=== PATIENT | male | born 1965 | race Caucasian/White ===

== ENCOUNTER 2016-12-24 21:16 | Emergency (ER) | payer OTHER ==
[~2016-12-24] VITALS: Ht 180.3 cm; Wt 72.0 kg
[~2016-12-24 21:16] MED LIST: FURO20TA PO; GEMF600T PO; IBUP600T26 PO; SPIR25TA PO
[2016-12-24 21:24] VITALS: BP 111/85; PULSE 96; RESP 16; TEMP 98.2; O2SAT 96
--- NOTE | 2016-12-24 22:45 | RADRPT ---
EXAM DATE/TIME: 12/24/2016 22:21 [facility] COMPARISON: No previous studies available for comparison. INDICATIONS : Cough MEDICAL HISTORY : None. SURGICAL HISTORY : None. ENCOUNTER: Initial ACUITY: 1 day PAIN SCORE: 5/10 LOCATION: Bilateral chest FINDINGS: There is a poor inspiratory result. The heart is top normal in size. The pulmonary vascular pattern is normal. The lungs are clear. There is no pneumothorax. CONCLUSION: 1. Poor inspiratory result. 2. No acute focal pulmonary infiltrate or pulmonary vascular congestion. Micah Ardon MD on December 24, 2016 at 22:41 Board Certified Radiologist. This report was verified electronically.
--- NOTE | 2016-12-24 22:46 | RADRPT ---
EXAM DATE/TIME: 12/24/2016 22:23 [facility] COMPARISON: No previous studies available for comparison. INDICATIONS : Trauma/Fall MEDICAL HISTORY : None. SURGICAL HISTORY : None. ENCOUNTER: Initial ACUITY: 1 day PAIN SCORE: 5/10 LOCATION: Right knee FINDINGS: There is spurring at the insertion of the quadriceps tendon on the patella. Mild degenerative change s are noted involving the patellofemoral joint. There is no acute fracture, dislocation or knee join t effusion. CONCLUSION: 1. Spurring at the insertion of the quadriceps tendon on the patella. 2. Mild degenerative changes involving the patellofemoral joint. 3. No acute fracture, dislocation or knee joint effusion. Micah Ardon MD on December 24, 2016 at 22:42 Board Certified Radiologist. This report was verified electronically.
[2016-12-24 22:49] VITALS: BP 143/87; PULSE 99; RESP 22; O2SAT 93
[2016-12-24] MEDS ORDERED: cefTRIAXone INJ 1,000 MG in SODIUM CHLORIDE 0.9% INJ 100 ML IV ONE (23:00)
[2016-12-24] MEDS ORDERED: SODIUM CHLORIDE 0.9% FLUSH 10 ML FLUSH IVF PRN (23:00)
[2016-12-24] MEDS ORDERED: RESP: ALBUTEROL 2.5 MG/3 ML NEB (SCH) INH ONE (23:00)
[2016-12-24] MEDS ORDERED: AZITHROMYCIN INJ 500 MG in SODIUM CHLOR 0.9% 250 ML INJ 250 ML IV ONE (23:00)
[2016-12-24] MEDS ORDERED: SODIUM CHLOR 0.9% 1000 ML INJ 1,000 ML IV ONE (23:00)
[2016-12-24] MEDS ORDERED: guaiFENesin SOLUTION 200 MG/10 ML CUP PO ONE (23:15)
[2016-12-24 23:30] VITALS: BP 142/76; PULSE 100; RESP 18; O2SAT 94
[2016-12-24 23:38] LABS: AUTOMATED NEUTROPHIL # 7.6 TH/MM3 (1.8-7.7); BASOPHIL # 0.1 TH/MM3 (0-0.2); BASOPHIL % 1.1 % (0.0-2.0); EOSINOPHIL # 0.2 TH/MM3 (0-0.4); EOSINOPHIL % 2.2 % (0.0-4.0); HEMATOCRIT 45.4 % (39.0-51.0); HEMO FLAGS DIFF FINAL; LYMPH % 21.7 % (9.0-44.0); LYMPHOCYTE # 2.4 TH/MM3 (1.0-4.8); MEAN CELL VOLUME 87.4 FL (80.0-100.0); MEAN CORPUSCULAR HEMOGLOBIN 29.1 PG (27.0-34.0); MEAN CORPUSCULAR HGB CONC 33.3 % (32.0-36.0); MONO % 6.7 % (0.0-8.0); NEUT % 68.3 % (16.0-70.0); PLATELET COUNT 260 TH/MM3 (150-450); RED BLOOD COUNT 5.19 MIL/MM3 (4.50-5.90); WHITE BLOOD COUNT 11.1 TH/MM3 (4.0-11.0)
[2016-12-24 23:53] LABS: BICARBONATE 26.1 MEQ/L (21.0-32.0); POTASSIUM 4.2 MEQ/L (3.5-5.1)
--- NOTE | 2016-12-25 00:27 | PD ---
HPI Chief Complaint: Fall Time Seen by Provider: 22:52 Travel History International Travel<30 days: No Contact w/Intl Traveler<30days: No Traveled to known affect area: No History of Present Illness HPI 51-year-old male arrives from [facility] after he fell from his wheelchair striking his right knee and right ribs. He's had pain since then. He denied loss of consciousness. No head trauma reported. He's had a cough for one week. No fever. He does have constant pain in the right knee and in the region of the right chest. The pain in the right chest pain is worse with palpation. Patient has somewhat of a difficult historian due to morning disability. History is obtained from EMS and facility documentation. [facility] Past Medical History High Cholesterol: Yes Diminished Hearing: No Musculoskeletal: Yes (myotonic muscular dystrophy) Immunizations Current: Yes Tetanus Vaccination: Unknown Influenza Vaccination: No Past Surgical History Eye Surgery: Yes Social History Alcohol Use: No Tobacco Use: Yes (09/28 ppd) Substance Use: No Allergies-Medications (Allergen,Severity, Reaction): Coded Allergies: No Known Allergies (Unverified , 12/24/16) Reported Meds & Prescriptions Reported Meds & Active Scripts Active Ibuprofen 600 Mg Tab 600 Mg PO Q8HR PRN Reported Furosemide 20 Mg Tab 20 Mg PO DAILY Spironolactone 25 Mg Tab 25 Mg PO DAILY Gemfibrozil 600 Mg Tab 600 Mg PO BID Review of Systems Except as stated in HPI: all other systems reviewed are Neg General / Constitutional: No: Fever Respiratory: Positive: Cough, Shortness of Breath Physical Exam Narrative GENERAL: 51-year-old male no acute distress SKIN: Focused skin assessment warm/dry. HEAD: Atraumatic. Normocephalic. EYES: Pupils equal and round. No scleral icterus. No injection or drainage. ENT: No nasal bleeding or discharge. Mucous membranes pink and moist. NECK: Trachea midline. No JVD. CARDIOVASCULAR: Regular rate and rhythm. No murmur appreciated. RESPIRATORY: Coarse breath sounds bilaterally. No significant tachypnea. GASTROINTESTINAL: Abdomen soft, non-tender, nondistended. Hepatic and splenic margins not palpable. MUSCULOSKELETAL: No obvious deformities. No clubbing. No cyanosis. No edema. NEUROLOGICAL: Awake and alert. No obvious cranial nerve deficits. Motor grossly within normal limits. Normal speech. PSYCHIATRIC: Appropriate mood and affect; insight and judgment normal. Data Data Last Documented VS Vital Signs Date Time Temp Pulse Resp B/P Pulse Ox O2 Delivery O2 Flow Rate FiO2 12/24/16 22:49 99 22 143/87 93 Room Air 12/24/16 21:24 98.2 Vital signs reviewed Orders Knee, Complete (4vws) (12/24/16 ) Chest, Single Ap (12/24/16 ) Basic Metabolic Panel (Bmp) (12/24/16 23:00) Complete Blood Count With Diff (12/24/16 23:00) Blood Culture (12/24/16 23:00) Ecg Monitoring (12/24/16 23:00) Iv Access Insert/Monitor (12/24/16 23:00) Oximetry (12/24/16 23:00) Sodium Chloride 0.9% Flush (Ns Flush) (12/24/16 23:00) Ceftriaxone Inj (Rocephin Inj) (12/24/16 23:00) Albuterol Neb (Albuterol Neb) (12/24/16 23:00) Azithromycin Inj (Zithromax Inj) (12/24/16 23:00) Sodium Chlor 0.9% 1000 Ml Inj (Ns 1000 M (12/24/16 23:00) Guaifenesin Liq (Robitussin Liq) (12/24/16 23:15) Labs Laboratory Tests Test 12/24/16 23:00 White Blood Count 11.1 TH/MM3 Red Blood Count 5.19 MIL/MM3 Hemoglobin 15.1 GM/DL Hematocrit 45.4 % Mean Corpuscular Volume 87.4 FL Mean Corpuscular Hemoglobin 29.1 PG Mean Corpuscular Hemoglobin 33.3 % Concent Red Cell Distribution Width 14.0 % Platelet Count 260 TH/MM3 Mean Platelet Volume 11.9 FL Neutrophils (%) (Auto) 68.3 % Lymphocytes (%) (Auto) 21.7 % Monocytes (%) (Auto) 6.7 % Eosinophils (%) (Auto) 2.2 % Basophils (%) (Auto) 1.1 % Neutrophils # (Auto) 7.6 TH/MM3 Lymphocytes # (Auto) 2.4 TH/MM3 Monocytes # (Auto) 0.7 TH/MM3 Eosinophils # (Auto) 0.2 TH/MM3 Basophils # (Auto) 0.1 TH/MM3 CBC Comment DIFF FINAL Differential Comment Sodium Level 142 MEQ/L Potassium Level 4.2 MEQ/L Chloride Level 104 MEQ/L Carbon Dioxide Level 26.1 MEQ/L Anion Gap 12 MEQ/L Blood Urea Nitrogen 27 MG/DL Creatinine 1.27 MG/DL Estimat Glomerular Filtration 60 ML/MIN Rate Random Glucose 117 MG/DL Calcium Level 9.4 MG/DL MDM Medical Decision Making Medical Screen Exam Complete: Yes Emergency Medical Condition: Yes Differential Diagnosis Rib fracture, pneumonia, fall, knee fracture, dehydration Narrative Course CBC & BMP Diagram 12/24/16 23:00 Last 24 hours Impressions Knee X-Ray 12/24/16 0000 Signed Impressions: Service Date/Time: November 22:23 - CONCLUSION: 1. Spurring at the insertion of the quadriceps tendon on the patella. 2. Mild degenerative changes involving the patellofemoral joint. 3. No acute fracture, dislocation or knee joint effusion. Micah Ardon MD Chest X-Ray 12/24/16 0000 Signed Impressions: Service Date/Time: November 22:21 - CONCLUSION: 1. Poor inspiratory result. 2. No acute focal pulmonary infiltrate or pulmonary vascular congestion. Micah Ardon MD Patient has been coughing quite a bit since his arrival. He had an excellent response to albuterol. Azithromycin prescribed. The patient received a liter of IV fluids. Diagnosis Primary Impression: Fall Qualified Code: W19.XXXA - Fall, initial encounter Additional Impressions: Rib pain on right side Cough Right knee injury Qualified Code: S89.91XA - Right knee injury, initial encounter Dehydration Referrals: Chris Cornelius MD 2 days Additional Instructions: You have a choice when it comes to health care, and we are glad that you chose [facility]. Hopefully, we have met your expectations on today's visit. You are welcome to return to [facility] at any time, as we are committed to meeting the health care needs of our community. Med/Other Pt SpecificInfo: Prescription(s) given Scripts Azithromycin 250 Mg [id number] Mg PO DAILY 4 Days Ref 0 Prov:Mark Jerome MD 12/25/16 Disposition: DISCHARGE HOME Condition: Stable Mark Jerome MD Dec 25, 2016 00:27
[2016-12-25 00:30] VITALS: BP 122/78; PULSE 102; RESP 18; O2SAT 99
[2016-12-25] MEDS ORDERED: AZIT250T3 PO (00:41)
[2016-12-25 01:29] VITALS: BP 113/86
== END 2016-12-25 08:30 | disposition home or self-care (01) ==
LOC: NEPE 21:16 → NEPA 12-25 08:30
DX: R07.81 Pleurodynia (principal); R05 Cough; E86.0 Dehydration; S89.91XA Unspecified injury of right lower leg, initial encounter; W05.0XXA Fall from non-moving wheelchair, initial encounter; Y92.89 Other specified places as the place of occurrence of the external cause
CPT/HCPCS: 71010; 73564; 80048; 85025; 87040; 94664; 96365; 96366; 96375; 99284; J0456; J0696; J7030; J7050; J7613

== ENCOUNTER 2017-01-02 14:49 | Emergency (ER) | payer MEDICARE, OTHER ==
[~2017-01-02] VITALS: Ht 165.1 cm; Wt 62.0 kg
[~2017-01-02 14:49] MED LIST changes: +AZIT250T3 PO
[2017-01-02 14:57] VITALS: BP 119/74; PULSE 72; RESP 18; TEMP 98.6
--- NOTE | 2017-01-02 15:04 | PD ---
HPI Chief Complaint: Fall Time Seen by Provider: 15:04 Travel History International Travel<30 days: No Contact w/Intl Traveler<30days: No Traveled to known affect area: No History of Present Illness HPI 51-year-old male with a history of myotonic muscular dystrophy and hyperlipidemia is brought to the emergency department by EMS from his assisted living facility for evaluation of left knee and right foot pain status post fall. The patient states that he was getting out of the shower with the assistance of his nurse when his knee buckled underneath him causing him to fall. States that he thinks he fell on his left knee and his right foot somehow because this is where he is having pain. He denies head trauma or loss of consciousness. Per EMS this was witnessed by the nurse who is also stating the patient did not hit his head or lose consciousness. The patient denies any neck pain, back pain, numbness or tingling, weakness. Pain is aggravated with palpation. Pain is mild in severity. Denies anticoagulation. No other complaints. PCP Dr. Cornelius. [facility] Past Medical History High Cholesterol: Yes Diminished Hearing: No Musculoskeletal: Yes (myotonic muscular dystrophy) Immunizations Current: Yes Past Surgical History Eye Surgery: Yes Social History Alcohol Use: No Tobacco Use: Yes (09/28 ppd) Substance Use: No Allergies-Medications (Allergen,Severity, Reaction): Coded Allergies: No Known Allergies (Unverified , 12/24/16) Reported Meds & Prescriptions Reported Meds & Active Scripts Active Reported Metformin (Metformin HCl) 1,000 Mg Tab 1,000 Mg PO BID With meals Spironolactone 25 Mg Tab 25 Mg PO DAILY Lasix (Furosemide) 20 Mg Tab 20 Mg PO DAILY Gemfibrozil 600 Mg Tab 600 Mg PO BID Take 30 minutes prior to breakfast and dinner. Review of Systems Except as stated in HPI: all other systems reviewed are Neg Physical Exam Narrative GENERAL: Thin pleasant male patient in no acute distress. SKIN: Warm and dry. HEAD: Normocephalic and atraumatic. EYES: No injection, drainage, or hyphema noted. PERRLA. EOMI. ENT: No nasal drainage noted. Oropharynx is clear. NECK: Supple and the trachea is midline. CARDIOVASCULAR: Regular rate and rhythm. RESPIRATORY: Breath sounds are equal bilaterally with no accessory muscle use, wheezing, rhonchi, or crackles. GASTROINTESTINAL: Abdomen is soft, non-tender, and nondistended. MUSCULOSKELETAL: Tenderness to palpation of right fourth and fifth toes and corresponding dorsal aspect of foot. DP pulses are 2+ bilaterally. Capillary refill is within normal limits. Left knee is not swollen or tender to palpation however patient has pain with full range of motion of the left knee. Negative AP drawer sign, the joint is stable. No obvious deformities, swelling , cyanosis, or ecchymosis is present throughout the upper and lower extremities. Patient has full range of motion without any signs of neurovascular compromise. NEUROLOGICAL: Awake, alert, and oriented. Normal speech and gait. Cranial nerves are grossly intact. Data Data Last Documented VS Vital Signs Date Time Temp Pulse Resp B/P Pulse Ox O2 Delivery O2 Flow Rate FiO2 01/02/17 14:59 96 01/02/17 14:57 98.6 72 18 119/74 Orders Foot, Complete ([id number]) (01/02/17 15:03) Knee, Complete (4vws) (01/02/17 15:03) MDM Medical Decision Making Medical Screen Exam Complete: Yes Emergency Medical Condition: Yes Differential Diagnosis Contusion versus sprain versus fracture Narrative Course 51-year-old male is brought to the emergency department for evaluation of mechanical fall with complaints of left knee and right foot pain. Patient is afebrile, vital signs are stable. No head trauma or loss of consciousness. Extremities are neurovascularly intact. X-ray imaging has been ordered and is pending. X-ray imaging of the left knee is negative for any acute abnormalities. X-ray of the right foot is negative for any acute abnormalities. The patient will be prescribed naproxen for pain relief. Discussed supportive care. He is stable for discharge back to his assisted living facility. Diagnosis Primary Impression: Left knee pain Qualified Code: M25.562 - Acute pain of left knee Additional Impressions: Right foot sprain Qualified Code: S93.601A - Right foot sprain, initial encounter Fall Qualified Code: W19.XXXA - Fall, initial encounter Referrals: Primary Care Physician Patient Instructions: Foot Sprain (ED), General Instructions, Knee Pain (ED) Additional Instructions: Take medications as prescribed with food and a full glass of water. Follow-up with your Primary Care Physician. Return to the ED for any acute worsening of symptoms. Med/Other Pt SpecificInfo: Prescription(s) given Scripts Naproxen 500 Mg [id number] Mg PO BID 5 Days Ref 0 Prov:Galindo Garcia MD 01/02/17 Disposition: 01 DISCHARGE HOME Condition: Stable Wilda Damon Jan 02, 2017 15:04
[2017-01-02] MEDS ORDERED: GEMF600T PO (16:14)
[2017-01-02] MEDS ORDERED: SPIR25TA PO (16:14)
[2017-01-02] MEDS ORDERED: FURO1TAB62 PO (16:14)
[2017-01-02] MEDS ORDERED: METF1000 PO (16:14)
--- NOTE | 2017-01-02 16:14 | RADRPT ---
EXAM DATE/TIME: 01/02/2017 15:43 [facility] COMPARISON: No previous studies available for comparison. INDICATIONS : Pain in right foot, fourth and fifth digits. Multiple falls. MEDICAL HISTORY : None. SURGICAL HISTORY : None. ENCOUNTER: Initial ACUITY: 1 day PAIN SCORE: 5/10 LOCATION: Right FINDINGS: Three view examination of the right foot demonstrates no soft tissue swelling, dislocation, or fractu re. The tarsal bones appear intact. The interphalangeal and metatarsophalangeal joints are intact. The calcaneus is intact. Bony mineralization is osteopenic. CONCLUSION: No acute fracture or joint dislocation. Arik Henson MD on January 02, 2017 at 16:12 Board Certified Radiologist. This report was verified electronically.
--- NOTE | 2017-01-02 16:15 | RADRPT ---
EXAM DATE/TIME: 01/02/2017 15:46 [facility] COMPARISON: No previous studies available for comparison. INDICATIONS : Pain in left knee, diffuse. Multiple falls. Trauma. MEDICAL HISTORY : None. SURGICAL HISTORY : None. ENCOUNTER: Initial ACUITY: 1 day PAIN SCORE: 5/10 LOCATION: Left FINDINGS: Four view examination of the left knee demonstrates no evidence of fracture or dislocation. Bony min eralization is normal. The articular surfaces are intact. The suprapatellar soft tissues have a nor mal configuration. CONCLUSION: Normal examination for a patient of this age. Arik Henson MD on January 02, 2017 at 16:13 Board Certified Radiologist. This report was verified electronically.
[2017-01-02] MEDS ORDERED: NAPR500T PO (16:48)
== END 2017-01-02 20:47 | disposition home or self-care (01) ==
LOC: NEPC 14:49
DX: S93.601A Unspecified sprain of right foot, initial encounter (principal); M25.562 Pain in left knee; G71.11 Myotonic muscular dystrophy; E78.00 Pure hypercholesterolemia, unspecified; F17.210 Nicotine dependence, cigarettes, uncomplicated; W18.30XA Fall on same level, unspecified, initial encounter; Y93.E1 Activity, personal bathing and showering; Y92.121 Bathroom in nursing home as the place of occurrence of the external cause; Y99.8 Other external cause status
CPT/HCPCS: 73564; 73630; 99284

== ENCOUNTER 2018-05-11 11:07 | Inpatient (IN) ==
[2018-05-11] MEDS ORDERED: Sod Chloride 0.9% Inj 1,000 ML IV.SIG ONE ×2 (11:14→12:53)
[2018-05-11] MEDS ORDERED: Morphine Inj 4 MG/ML Vial IV.PUSH ONE (11:14)
[2018-05-11 12:03] LABS: Baso % (Auto) 0.3 % (0.0-2.0); Eos % (Auto) 0.1 % (0.0-4.0); Hematocrit 40.5 % (39.0-51.0); Hemoglobin 13.4 gm/dL (13.0-17.0); Lymph # (Auto) 1.2 th/mm3 (1.0-4.8); Lymph % (Auto) 7.6 % (9.0-44.0); Mean Corpuscular Hemoglobin 27.6 pg (27.0-34.0); Mean Corpuscular Volume 83.5 fL (80.0-100.0); Mean Platelet Volume 10.2 fL (7.0-11.0); Mono # (Auto) 1.2 th/mm3 (0.0-0.9); Mono % (Auto) 7.9 % (0.0-8.0); Neut # (Auto) 13.1 th/mm3 (1.8-7.7); Neut % (Auto) 84.1 % (16.0-70.0); Platelet Count 218 th/mm3 (150-450); Red Blood Count 4.85 mil/mm3 (4.50-5.90); Red Cell Distribution Width 15.5 % (11.6-17.2); White Blood Count 15.6 th/mm3 (4.0-11.0)
--- NOTE | 2018-05-11 12:08 | ED ---
HPI General Chief Complaint: Abdominal Pain Stated Complaint: Abd Pain Time Seen by Provider: 05/11/18 11:09 Source: patient Mode of arrival: EMS Limitations: no limitations and physical limitation History of Present Illness HPI narrative: 52-year-old male with PMH of DM, MS, nonambulatory, presents to the ED by EMS from his [facility] for evaluation of left lower quadrant abdominal pain. Patient rates the pain 8/10, worsened by certain movements. No alleviating factors reported. He states that he had a fall 2 days ago and was evaluated here. He states that he has not had a bowel movement since that time. He denies fevers, chills, nausea, vomiting, anorexia, dysuria, back pain. He is not oxygen dependent at the [facility]. He is not insulin-dependent, takes metformin daily. Per EMS BGL 441. Patient is a poor historian. Related Data Home Medications Medication Instructions Recorded Confirmed atorvastatin [Lipitor] 10 mg PO QPM 05/09/18 05/11/18 metformin 500 mg PO DAILY 05/09/18 05/11/18 Allergies Allergy/AdvReac Type Severity Reaction Status Date / Time No Known Allergies Allergy Verified 05/11/18 11:23 Review of Systems ROS: all other systems reviewed are negative PMFSH Medical History Medical History High cholesterol (Acute) Diabetes (Acute) Multiple sclerosis (Acute) Social History Social History Substance History: No History of Abuse Smoking Status: Current every day smoker Tobacco Type: Cigarettes How Often Do You Have a Drink Containing Alcohol: Never Recent Travel in [facility] within the Last 8 Weeks: No Recent Out of Country Travel within the Last 8 Weeks: No Immunization History Tetanus Immunization: <5 Years Exam Narrative Exam Narrative: GENERAL: Well-nourished white male in no acute distress. SKIN: Focused skin assessment warm/dry. HEAD: Atraumatic. Normocephalic. EYES: Pupils equal and round. No scleral icterus. No injection or drainage. ENT: No nasal bleeding or discharge. Mucous membranes pink and moist. NECK: Trachea midline. No JVD. CARDIOVASCULAR: Regular rate and rhythm. No murmur appreciated. RESPIRATORY: No accessory muscle use. Clear to auscultation. Breath sounds equal bilaterally. GASTROINTESTINAL: Abdomen soft, distended, tender in the left lower quadrant, hypoactive bowel sounds. Hepatic and splenic margins not palpable. RECTAL EXAM: No masses or tenderness, stool is yellow-brown. Guaiac negative MUSCULOSKELETAL: No obvious deformities. +clubbing. No cyanosis. No edema. NEUROLOGICAL: Awake and alert. No obvious cranial nerve deficits. Motor grossly within normal limits. Chronically slurred speech. PSYCHIATRIC: Appropriate mood and affect. Procedures Hemaprompt Stool Procedural Steps Taken: specimen placed in appropriate test area and controls appropriately positive and negative Hemaprompt Stool Result: negative Course Initial Documented Vital Signs Temperature 98.9 F 05/11/18 11:12 Pulse Rate 122 H 05/11/18 11:12 Respiratory Rate 27 H 05/11/18 11:12 Blood Pressure 166/96 H 05/11/18 11:12 Pulse Oximetry 87 L 05/11/18 11:12 Last Documented Vital Signs Temperature 98.9 F 05/11/18 11:12 Pulse Rate 78 05/11/18 15:32 Respiratory Rate 12 05/11/18 15:32 Blood Pressure 131/67 05/11/18 15:32 Pulse Oximetry 96 05/11/18 14:30 Medical Decision Making MILLIE Attestation MILLIE supervised visit: Yes Attestation: I, Dr. Alvarez, have reviewed the advance practice practitioner's documentation and am in agreement, met with the patient face to face, made the diagnosis, and the medical decision making was done by me. *My assessment and Findings: This patient is critically ill. Extensive scanning was done which revealed enlarged retroperitoneal hematoma. He also has respiratory acidosis. I placed him on BiPAP for an hour and redraw ABG which really does not look much different. I discussed with trauma surgeon Dr. Julio who will evaluate the patient. We are going to admit him to intensive care. Aggregate critical care time was 80 minutes. Time to perform other separately billable procedures was not included in the critical care time. My time did not include minutes spent treating any other patients simultaneously or on activities that did not directly contribute to the patient's treatment. The services I provided to this patient were to treat and/or prevent clinically significant deterioration that could result in: Cardiopulmonary arrest, hemorrhagic shock, I provided critical care services requiring my management, as noted below: Chart data review, documentation time, medication orders and management, vital sign assessments/reviewing monitor data, ordering and reviewing lab tests, ordering and interpreting/reviewing x-rays and diagnostic studies, care of the patient and discussion of the patient with the admitting physicians. MDM Narrative Medical decision making narrative: 52-year-old male with PMH of DM, MS presents to the ED for evaluation of 2 day history of constipation. He had a fall 2 days ago and was evaluated here and discharged. BP 166/96, pulse 122, respiratory rate 27%, O2 sats 95% on 2 L nasal nasal cannula, afebrile, BGL 441 on presentation. On physical exam the abdomen is distended and tender in the left lower quadrant. Rectal exam guaiac negative and without evidence of impaction. Patient was placed on 2 L by nasal cannula. He was administered 1 L normal saline. EKG rate 116, sinus tachycardia with first-degree AV block. NC interval 215, QRS 99, QTc 375 ms. LAD, no acute ST changes. Reviewed by Dr. Alvarez. CBC: WBC 15.6, 84.1% Neutrophils CMP: BGL 342 LACTIC: 3.0, recheck 1.6 Beta hydroxybutyrate: 0.07 ABG: pH 7.282 respiratory acidosis CXR: Diminished volumes, focal parenchymal opacity in the left lower base. CT abdomen/pelvis: Left-sided retroperitoneal hematoma 10.3 x 6.9 cm. There is a 1 cm cyst soft tissue mass in the posterior mid right kidney and a 1.9 soft tissue density mass adjacent to the right renal pole. CT brain: no acute findings. Patient was placed on BiPap, administered a 2nd liter of NS, 6u insulins IM. Vitals improved on recheck. Recheck BGL 167. Recheck ABG largely unchanged, pH 7.27. Dr. Alvarez discussed the CT findings with Dr. Galarza who agrees to accept the patient to his service in the ICU. Medical Screen Exam Complete: Yes Emergency Medical Condition: Yes Differential Diagnosis Differential Diagnosis: Paralytic ileus versus impaction versus hyperglycemia versus splenic laceration versus HHNK versus DKA versus metabolic derangement versus other Lab Data Result diagrams: 05/11/18 11:31 05/11/18 11:31 Lab Results 05/11/18 05/11/18 05/11/18 Range/Units 11:31 11:31 11:31 WBC 15.6 H (4.0-11.0) th/mm3 RBC 4.85 (4.50-5.90) mil/mm3 Hgb 13.4 (13.0-17.0) gm/dL Hct 40.5 (39.0-51.0) % MCV 83.5 (80.0-100.0) fL MCH 27.6 (27.0-34.0) pg MCHC 33.0 (32.0-36.0) % RDW 15.5 (11.6-17.2) % Plt Count 218 (150-450) th/mm3 MPV 10.2 (7.0-11.0) fL Neut % (Auto) 84.1 H (16.0-70.0) % Lymph % (Auto) 7.6 L (9.0-44.0) % Treasure % (Auto) 7.9 (0.0-8.0) % Eos % (Auto) 0.1 (0.0-4.0) % Baso % (Auto) 0.3 (0.0-2.0) % Neut # (Auto) 13.1 H (1.8-7.7) th/mm3 Lymph # (Auto) 1.2 (1.0-4.8) th/mm3 Treasure # (Auto) 1.2 H (0.0-0.9) th/mm3 Eos # (Auto) 0.0 (0.0-0.4) th/mm3 Baso # (Auto) 0.0 (0.0-0.2) th/mm3 WBC Differential . Differential Comment Auto diff final PT (9.8-11.6) sec INR Ratio APTT (24.3-30.1) sec Puncture Site Patient Temperature O2 Saturation (90-100) % ABG pH (7.380-7.420) ABG pCO2 (38-42) mmHg ABG pO2 (61-120) mmHg ABG HCO3 (22-26) mmol/L ABG O2 Content (12.0-20.0) Vol % ABG Base Excess (-2-2) mmol/L ABG Methemoglobin (0-2) % Melquiades Test Hemoglobin (12.0-16.0) G/DL Carboxyhemoglobin (0-4) % O2 Delivery Device Liter Flow L/M Vent Setting Inspired O2 % Critical Value Sodium (136-145) meq/L Potassium (3.5-5.1) meq/L Chloride (98-107) meq/L Carbon Dioxide (21.0-32.0) meq/L Anion Gap (5-15) meq/L BUN (7-18) mg/dL Creatinine (0.60-1.30) mg/dL Estimated GFR (>89) mL/min POC Glucose (68-110) mg/dl Random Glucose (74-106) mg/dL Lactic Acid 3.0 H (0.4-2.0) mmol/L Calcium (8.5-10.1) mg/dL Total Bilirubin (0.2-1.0) mg/dL AST (15-37) U/L ALT (12-78) U/L Alkaline Phosphatase (45-117) U/L Troponin I (0.02-0.05) ng/mL Total Protein (6.4-8.2) g/dL Albumin (3.4-5.0) g/dL Lipase (73-393) U/L Beta-Hydroxybutyric Acd 0.07 (0.00-0.39) mmol/L Blood Type Blood Type Recheck Antibody Screen 05/11/18 05/11/18 05/11/18 Range/Units 11:31 11:31 12:59 WBC (4.0-11.0) th/mm3 RBC (4.50-5.90) mil/mm3 Hgb (13.0-17.0) gm/dL Hct (39.0-51.0) % MCV (80.0-100.0) fL MCH (27.0-34.0) pg MCHC (32.0-36.0) % RDW (11.6-17.2) % Plt Count (150-450) th/mm3 MPV (7.0-11.0) fL Neut % (Auto) (16.0-70.0) % Lymph % (Auto) (9.0-44.0) % Treasure % (Auto) (0.0-8.0) % Eos % (Auto) (0.0-4.0) % Baso % (Auto) (0.0-2.0) % Neut # (Auto) (1.8-7.7) th/mm3 Lymph # (Auto) (1.0-4.8) th/mm3 Treasure # (Auto) (0.0-0.9) th/mm3 Eos # (Auto) (0.0-0.4) th/mm3 Baso # (Auto) (0.0-0.2) th/mm3 WBC Differential Differential Comment PT (9.8-11.6) sec INR Ratio APTT (24.3-30.1) sec Puncture Site Right radial Patient Temperature 98.6 O2 Saturation 86 L* (90-100) % ABG pH 7.28 L* (7.380-7.420) ABG pCO2 63 H* (38-42) mmHg ABG pO2 63 (61-120) mmHg ABG HCO3 29 H (22-26) mmol/L ABG O2 Content 14.2 (12.0-20.0) Vol % ABG Base Excess 2.8 H (-2-2) mmol/L ABG Methemoglobin 0.7 (0-2) % Melquiades Test Present Hemoglobin 11.8 L (12.0-16.0) G/DL Carboxyhemoglobin 2.4 (0-4) % O2 Delivery Device Nasal cannula Liter Flow 2.00 L/M Vent Setting Inspired O2 21 % Critical Value Yes Sodium 139 (136-145) meq/L Potassium 4.0 (3.5-5.1) meq/L Chloride 101 (98-107) meq/L Carbon Dioxide 27.8 (21.0-32.0) meq/L Anion Gap 10 (5-15) meq/L BUN 17 (7-18) mg/dL Creatinine 1.12 (0.60-1.30) mg/dL Estimated GFR 69 L (>89) mL/min POC Glucose (68-110) mg/dl Random Glucose 342 H (74-106) mg/dL Lactic Acid (0.4-2.0) mmol/L Calcium 8.6 (8.5-10.1) mg/dL Total Bilirubin 2.0 H (0.2-1.0) mg/dL AST 10 L (15-37) U/L ALT 36 (12-78) U/L Alkaline Phosphatase 80 (45-117) U/L Troponin I Less than 0.02 L (0.02-0.05) ng/mL Total Protein 7.1 (6.4-8.2) g/dL Albumin 3.0 L (3.4-5.0) g/dL Lipase 52 L (73-393) U/L Beta-Hydroxybutyric Acd (0.00-0.39) mmol/L Blood Type Blood Type Recheck Antibody Screen 05/11/18 05/11/18 05/11/18 Range/Units 13:10 13:53 13:53 WBC (4.0-11.0) th/mm3 RBC (4.50-5.90) mil/mm3 Hgb (13.0-17.0) gm/dL Hct (39.0-51.0) % MCV (80.0-100.0) fL MCH (27.0-34.0) pg MCHC (32.0-36.0) % RDW (11.6-17.2) % Plt Count (150-450) th/mm3 MPV (7.0-11.0) fL Neut % (Auto) (16.0-70.0) % Lymph % (Auto) (9.0-44.0) % Treasure % (Auto) (0.0-8.0) % Eos % (Auto) (0.0-4.0) % Baso % (Auto) (0.0-2.0) % Neut # (Auto) (1.8-7.7) th/mm3 Lymph # (Auto) (1.0-4.8) th/mm3 Treasure # (Auto) (0.0-0.9) th/mm3 Eos # (Auto) (0.0-0.4) th/mm3 Baso # (Auto) (0.0-0.2) th/mm3 WBC Differential Differential Comment PT 11.0 (9.8-11.6) sec INR 1.1 Ratio APTT 28.4 (24.3-30.1) sec Puncture Site Patient Temperature O2 Saturation (90-100) % ABG pH (7.380-7.420) ABG pCO2 (38-42) mmHg ABG pO2 (61-120) mmHg ABG HCO3 (22-26) mmol/L ABG O2 Content (12.0-20.0) Vol % ABG Base Excess (-2-2) mmol/L ABG Methemoglobin (0-2) % Melquiades Test Hemoglobin (12.0-16.0) G/DL Carboxyhemoglobin (0-4) % O2 Delivery Device Liter Flow L/M Vent Setting Inspired O2 % Critical Value Sodium (136-145) meq/L Potassium (3.5-5.1) meq/L Chloride (98-107) meq/L Carbon Dioxide (21.0-32.0) meq/L Anion Gap (5-15) meq/L BUN (7-18) mg/dL Creatinine (0.60-1.30) mg/dL Estimated GFR (>89) mL/min POC Glucose (68-110) mg/dl Random Glucose (74-106) mg/dL Lactic Acid 1.6 (0.4-2.0) mmol/L Calcium (8.5-10.1) mg/dL Total Bilirubin (0.2-1.0) mg/dL AST (15-37) U/L ALT (12-78) U/L Alkaline Phosphatase (45-117) U/L Troponin I (0.02-0.05) ng/mL Total Protein (6.4-8.2) g/dL Albumin (3.4-5.0) g/dL Lipase (73-393) U/L Beta-Hydroxybutyric Acd (0.00-0.39) mmol/L Blood Type O Positive Blood Type Recheck Required Antibody Screen Negative 05/11/18 05/11/18 Range/Units 15:20 15:29 WBC (4.0-11.0) th/mm3 RBC (4.50-5.90) mil/mm3 Hgb (13.0-17.0) gm/dL Hct (39.0-51.0) % MCV (80.0-100.0) fL MCH (27.0-34.0) pg MCHC (32.0-36.0) % RDW (11.6-17.2) % Plt Count (150-450) th/mm3 MPV (7.0-11.0) fL Neut % (Auto) (16.0-70.0) % Lymph % (Auto) (9.0-44.0) % Treasure % (Auto) (0.0-8.0) % Eos % (Auto) (0.0-4.0) % Baso % (Auto) (0.0-2.0) % Neut # (Auto) (1.8-7.7) th/mm3 Lymph # (Auto) (1.0-4.8) th/mm3 Treasure # (Auto) (0.0-0.9) th/mm3 Eos # (Auto) (0.0-0.4) th/mm3 Baso # (Auto) (0.0-0.2) th/mm3 WBC Differential Differential Comment PT (9.8-11.6) sec INR Ratio APTT (24.3-30.1) sec Puncture Site Right radial Patient Temperature 98.6 O2 Saturation 90 (90-100) % ABG pH 7.28 L* (7.380-7.420) ABG pCO2 62 H* (38-42) mmHg ABG pO2 72 (61-120) mmHg ABG HCO3 28 H (22-26) mmol/L ABG O2 Content 14.8 (12.0-20.0) Vol % ABG Base Excess 1.6 (-2-2) mmol/L ABG Methemoglobin 0.6 (0-2) % Melquiades Test Present Hemoglobin 11.7 L (12.0-16.0) G/DL Carboxyhemoglobin 2.1 (0-4) % O2 Delivery Device Bipap Liter Flow L/M Vent Setting Ipap 12/epap 5 Inspired O2 40 % Critical Value Yes Sodium (136-145) meq/L Potassium (3.5-5.1) meq/L Chloride (98-107) meq/L Carbon Dioxide (21.0-32.0) meq/L Anion Gap (5-15) meq/L BUN (7-18) mg/dL Creatinine (0.60-1.30) mg/dL Estimated GFR (>89) mL/min POC Glucose 167 H (68-110) mg/dl Random Glucose (74-106) mg/dL Lactic Acid (0.4-2.0) mmol/L Calcium (8.5-10.1) mg/dL Total Bilirubin (0.2-1.0) mg/dL AST (15-37) U/L ALT (12-78) U/L Alkaline Phosphatase (45-117) U/L Troponin I (0.02-0.05) ng/mL Total Protein (6.4-8.2) g/dL Albumin (3.4-5.0) g/dL Lipase (73-393) U/L Beta-Hydroxybutyric Acd (0.00-0.39) mmol/L Blood Type Blood Type Recheck Antibody Screen Imaging Data Radiologist's impression: Abdomen/Pelvis CT 05/11/18 11:14 CONCLUSION: 1. Enlarging exophytic lesion arising from the inferior pole of the left kidney likely due to interval lesional hemorrhage with adjacent large retroperitoneal hematoma measuring 10.3 x 6.9 cm. Recommend further characterization of this lesion once patient's hemorrhage resolves with MRI renal mass protocol to exclude underlying mass that bled following trauma. 2. 1.0 cm soft tissue density mass arising from the posterior mid right kidney. There are also additional indeterminate density lesions primarily in the right kidney. These lesions can also be further characterized with MRI renal mass protocol exam. 3. 1.9 cm soft tissue density mass adjacent to the right renal midpole. This appears to be separate from the right kidney. Etiology is uncertain. Differential considerations include splenosis. If this cannot be definitively characterized at the time of MRI renal mass examination, consider sulfur colloid or heat damaged red cell nuclear medicine scan to exclude splenic tissue. 4. Additional ancillary findings, as above. Chest X-Ray 05/11/18 11:59 CONCLUSION: Diminished lung volumes. Focal parenchymal opacity at the left lung base. Head CT 05/11/18 13:53 CONCLUSION: No acute intracranial injury. . Discharge Plan Discharge Disposition Patient Disposition: 30 Still Patient Discharge Details Diagnosis: Traumatic retroperitoneal hematoma, Respiratory acidosis Physicians Team ED Provider: Danny Alvarez ED Midlevel Provider: Arabella Lucas Primary Care Provider: UNKNOWN, Attending Provider: Aaron Tucker Status ED Status: Admitted Patient
[2018-05-11 12:31] LABS: Alanine Aminotransferase 36 U/L (12-78); Alkaline Phosphatase 80 U/L (45-117); Anion Gap 10 meq/L (5-15); Aspartate Aminotransferase 10 U/L (15-37); Blood Urea Nitrogen 17 mg/dL (7-18); Calcium 8.6 mg/dL (8.5-10.1); Carbon Dioxide 27.8 meq/L (21.0-32.0); Chloride 101 meq/L (98-107); Glomerular Filtration Rate 69 mL/min (>89); Glucose,Random 342 mg/dL (74-106); Lipase 52 U/L (73-393); Sodium 139 meq/L (136-145); Total Protein 7.1 g/dL (6.4-8.2)
[2018-05-11 13:32] LABS: ABG Base Excess 2.8 mmol/L (-2-2); ABG PCO2 63 mmHg (38-42); ABG PO2 63 mmHg (61-120)
--- NOTE | 2018-05-11 13:41 | CT ---
EXAM DATE: 05/11/2018 1:17 PM EDT AGE/SEX: 52 years / Male INDICATIONS: fall now having upper abdomen pain with constipatin CLINICAL DATA: This is the patient's initial encounter. Patient reports that signs and symptoms have been present for 3 days and indicates a pain score of 10/10. MEDICAL/SURGICAL HISTORY: Multiple sclerosis. Diabetes. None. ORAL CONTRAST: No oral contrast ingested. RADIATION DOSE: 7.15 CTDI (mGy) COMPARISON: [facility] – [place] ABDOMEN & PELVIS W CONTRAST, 05/09/2018. . TECHNIQUE: Multiple contiguous axial images were obtained through the abdomen and pelvis following b olus infusion of 71 ml Omnipaque 350 (iohexol) nonionic water-soluble contrast as a single exam dos e. No oral contrast ingested. Using automated exposure control and adjustment of the mA and/or kV ac cording to patient size, radiation dose was kept as low as reasonably achievable to obtain optimal di agnostic quality images. DICOM format image data is available electronically for review and comparis on. FINDINGS: LOWER LUNGS: Patchy airspace consolidation at the lung bases bilaterally. LIVER: Liver demonstrates diffusely decreased density without focal mass or intrahepatic ductal dila tation. Numerous gallstones are noted in the gallbladder. SPLEEN: Homogeneous density without enlargement. PANCREAS: Unremarkable without mass or calcification. KIDNEYS: There is a 4.3 x 2.8 cm isodense exophytic lesion arising from the inferior pole the left k idney which appears more dense and larger in comparison to recent prior exam. Hemorrhage extends from this region inferiorly and laterally with a large adjacent retroperitoneal hematoma measuring 10.3 x 6.9 cm with mass effect on the left kidney. Redemonstration of multiple bilateral renal cysts. This includes an indeterminate cystic lesion measuring 3 cm in the superior pole of the right kidney. Ther e is also a potentially soft tissue density 1 cm mass arising from the posterior mid right kidney. Th ere is also a soft tissue density 1.9 cm mass adjacent to the right renal midpole that appears separa te from the kidney. Multiple other hypodense cystic lesions are too small to fully characterize. ADRENAL GLANDS: Unremarkable. AORTA: Roopa-aneurysmal. BOWEL/MESENTERY: The bowel loops are grossly unremarkable. The cecum and sigmoid colon have a vesna l configuration. ABDOMINAL WALL: Intact. RETROPERITONEUM: No evidence of adenopathy in the retrocrural, para-aortic, or deep pelvic regions. BLADDER: Contours are smooth. REPRODUCTIVE: No abnormal masses or calcifications seen. BONY STRUCTURES: Unremarkable. CONCLUSION: 1. Enlarging exophytic lesion arising from the inferior pole of the left kidney likely due to interv al lesional hemorrhage with adjacent large retroperitoneal hematoma measuring 10.3 x 6.9 cm. Recommen d further characterization of this lesion once patient's hemorrhage resolves with MRI renal mass prot ocol to exclude underlying mass that bled following trauma. 2. 1.0 cm soft tissue density mass arising from the posterior mid right kidney. There are also addit ional indeterminate density lesions primarily in the right kidney. These lesions can also be further characterized with MRI renal mass protocol exam. 3. 1.9 cm soft tissue density mass adjacent to the right renal midpole. This appears to be separate from the right kidney. Etiology is uncertain. Differential considerations include splenosis. If this cannot be definitively characterized at the time of MRI renal mass examination, consider sulfur collo id or heat damaged red cell nuclear medicine scan to exclude splenic tissue. 4. Additional ancillary findings, as above. Electronically signed by: Gene Fontenot MD 05/11/2018 1:40 PM EDT
--- NOTE | 2018-05-11 13:44 | XR ---
EXAM DATE: 05/11/2018 1:25 PM EDT AGE/SEX: 52 years / Male INDICATIONS: Congestion. CLINICAL DATA: This is the patient's initial encounter. Patient reports that signs and symptoms have been present for 1 day and indicates a pain score of Nonresponsive. MEDICAL/SURGICAL HISTORY: Non-responsive. Non-responsive. COMPARISON: [facility] [place] SING[place] AP, 12/24/2016. . FINDINGS: There is mild focal parenchymal opacity at the left lung base. Lung volumes are symmetrically diminis hed. Visualized cardiac contours are grossly satisfactory. CONCLUSION: Diminished lung volumes. Focal parenchymal opacity at the left lung base. Electronically signed by: Bryson Paez MD 05/11/2018 1:43 PM EDT
[2018-05-11 14:24] LABS: Activated Partial Thrombo Time 28.4 sec (24.3-30.1); INR 1.1 Ratio
--- NOTE | 2018-05-11 15:00 | CT ---
EXAM DATE: 05/11/2018 2:55 PM EDT AGE/SEX: 52 years / Male INDICATIONS: Fall from seated position. CLINICAL DATA: This is the patient's initial encounter. Patient reports that signs and symptoms have been present for 1 day and indicates a pain score of 4/10. MEDICAL/SURGICAL HISTORY: Multiple sclerosis. Diabetes. None. RADIATION DOSE: 56.35 CTDI (mGy) COMPARISON: No prior exams available for comparison. TECHNIQUE: CT of the head without contrast. Using automated exposure control and adjustment of the mA and/or kV according to patient size, radiation dose was kept as low as reasonably achievable to ob tain optimal diagnostic quality images. DICOM format image data is available electronically for revi ew and comparison. FINDINGS: There is residual vascular contrast from earlier CT abdomen. There is no evidence of intracranial hem orrhage or mass. There is nothing to suggest acute infarction. The ventricles are mildly asymmetric o n a developmental basis. No abnormal extra-axial fluid accumulation is identified. Patchy mild dimini shed white matter attenuation. Nothing to suggest acute brain injury. Fluid in the mastoid air cells, left worse than right. Facial sinuses are unremarkable CONCLUSION: No acute intracranial injury. . Electronically signed by: Bryson Paez MD 05/11/2018 2:59 PM EDT
[2018-05-11 15:23] LABS: ABG Base Excess 1.6 mmol/L (-2-2); ABG PCO2 62 mmHg (38-42); ABG PO2 72 mmHg (61-120)
--- NOTE | 2018-05-11 15:54 | ECG ---
Date Performed: 05/11/2018 Time Performed: 12:24:53 PTAGE: 52 years EKG: SINUS TACHYCARDIA WITH FIRST DEGREE AV BLOCK MARKED LEFT AXIS DEVIATION PATTERN CONSISTENT WITH PULMONARY DISEASE MINIMAL VOLTAGE CRITERIA FOR LVH, CONSIDER NORMAL VARIANT NONSPECIFIC T-WAVE A BNORMALITY ABNORMAL ECG NO PREVIOUS TRACING DOCTOR: Sriram Christine Interpretating Date/Time 05/11/2018 15:53:26
[2018-05-11] MEDS ORDERED: Naloxone Inj 0.4 MG/ML Vial IV.PUSH PRN (16:29)
[2018-05-11] MEDS ORDERED: Post-op Orders (for Pharmacy) OTHER ONE (16:29)
[2018-05-11] MEDS ORDERED: Bisacodyl 10 MG Supp RECTAL PRN (16:29)
--- NOTE | 2018-05-11 16:58 | P.CONCC ---
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 Patient was found to have a large left retroperitoneal mesenteric hematoma measuring about 10 x 6 cm, also had right renal tumor which apparently had been followed per Dr. Arnold's notes. Patient's initial ABG showed pH of 7.28 PCO2 of 63 on room air and he was placed on a BiPAP. Repeat ABG after several hours on BiPAP setting 12/5 showed pH 7.28 PCO2 unchanged at 62. Critical care medicine was consulted for hypercapnic respiratory failure on BiPAP. I evaluated the patient in the ICU. He is somnolent but wakes up to command. Currently he is on 18/6 pressure setting on BiPAP. Currently patient is tachycardic and lethargic. He has history of myotonic muscular dystrophy with atrophied extremities. He is also a smoker. Repeat ABG on above settings shows no significant improvement. His pH remains at 7.28. Patient is at high risk of decompensation due to known muscular dystrophy. Proceed with endotracheal intubation Review of Systems unobtainable due to mental condition PMFSH - History History Provided By: Patient - Medical History Medical History: Medical History (Last Updated 05/11/18 @ 11:29 by Letty Higgins RN) High cholesterol Diabetes Multiple sclerosis - Tobacco History Tobacco Use In Past 30 Days: Yes Smoking Status: Current every day smoker Tobacco Type: Cigarettes - Alcohol History How Often Do You Have a Drink Containing Alcohol: Never - Substance Use History Substance History: No History of Abuse - Travel History Recent Travel in the [place] Within the Last 8 Weeks: No Recent Travel Out of the Country Within the Last 8 Weeks: No - Immunization History Tetanus Immunization: <5 Years Medications and Allergies Active Medications: Active Medications Al Hydroxide/Mg Hydroxide (Milk Of Magnesia Liq) 30 ml PO Q12H PRN PRN Reason: Mild Constipation Bisacodyl (Dulcolax Supp) 10 mg RECTAL DAILY PRN PRN Reason: SEVERE CONSITIPATION Lactated Ringer's (Lr 1000 Ml Inj) 1,000 mls @ 100 mls/hr IV.CONT .Q10H GEORGI Lactulose (Lactulose Liq) 30 ml PO DAILY GEORGI Naloxone HCl (Narcan Inj) 0.4 mg IV.PUSH UNSCH PRN PRN Reason: SEE LABEL COMMENTS Ondansetron HCl (Zofran Inj) 4 mg IV.PUSH Q6H PRN PRN Reason: NAUSEA OR VOMITING Pantoprazole Sodium (Protonix) 40 mg PO DAILY GEORGI Senna/Docusate Sodium (Deb-Colace) 1 tab PO BID GEORGI Sennosides (Senokot) 17.2 mg PO Q12H PRN PRN Reason: Moderate Constipation Sodium Chloride (Ns Flush) 2 ml IV.FLUSH PRN PRN PRN Reason: FLUSH AFTER USING IV ACCESS Last Admin: 05/11/18 11:28 Dose: 2 ml Allergies Allergy/AdvReac Type Severity Reaction Status Date / Time No Known Allergies Allergy Verified 05/11/18 11:23 Home Medications Medication Instructions Recorded Confirmed Type atorvastatin [Lipitor] 10 mg PO QPM 05/09/18 05/11/18 History metformin 500 mg PO DAILY 05/09/18 05/11/18 History Physical Exam Vital signs: Vital Signs 05/11/18 11:12 05/11/18 11:15 05/11/18 12:20 Temperature 98.9 F Pulse Rate 122 H Respiratory Rate 27 H Blood Pressure 166/96 H Pulse Oximetry 87 L 95 95 05/11/18 13:25 05/11/18 13:30 05/11/18 14:30 Temperature Pulse Rate 110 H 108 H Respiratory Rate 18 17 Blood Pressure 158/96 H 140/86 Pulse Oximetry 96 96 96 05/11/18 15:32 05/11/18 16:00 05/11/18 16:01 Temperature Pulse Rate 78 Respiratory Rate 12 19 Blood Pressure 131/67 Pulse Oximetry 95 Intake & Output 05/10/18 05/11/18 05/11/18 18:59 06:59 18:59 Intake Total 1999 Balance 1999 Weight 81.647 kg Intake: IV 1999 NS Inj 1,000 ML @ Wide Open IV. 1999 SIG BOLUS ONE Rx#:[id number] Narrative: GENERAL: Well-nourished white male lying in bed, somnolent currently on BiPAP SKIN: Focused skin assessment warm/dry. HEAD: Atraumatic. Normocephalic. EYES: Pupils equal and round. No scleral icterus. No injection or drainage. ENT: No nasal bleeding or discharge. BiPAP mask limits exam. NECK: Trachea midline. No JVD. CARDIOVASCULAR: Tachycardic rate and rhythm. No murmur appreciated. RESPIRATORY: No accessory muscle use. Breath sounds equal bilaterally. Air entry diminished bilaterally GASTROINTESTINAL: Abdomen soft, distended, tender in the left lower quadrant and flank, No ecchymoses MUSCULOSKELETAL: Limb muscles upper and lower extremities are atrophied NEUROLOGICAL: Currently on BiPAP somnolent. Follows commands but falls right back to sleep. 4/5 power all extremities Septic Shock Reassessment Septic shock perfusion: reassessment completed Assessment and Plan - Assessment and Plan Plan: ASSESSMENT: Acute hypercapnic respiratory failure Probable COPD with exacerbation Status post fall with large left-sided retroperitoneal hematoma Diabetes mellitus with hyperglycemia Known renal tumor Myotonic muscular dystrophy Tobacco abuse Obesity PLAN: NEURO: -Propofol for sedation after intubation -PT/OT daily RESP: -Due to risk of acute decompensation, patient will be intubated and placed on mechanical ventilation -PRVC/AC Ventilator bundle -DuoNeb every 4 hours scheduled and as needed -Sputum culture, start IV Solu-Medrol 40 mg every 8 hours -Daily MIP, VC, SBT once improved CV: -Normal saline IV fluids 3L bolus and maintenance at 84 mL/h -Monitor blood pressure and heart rate close GI/HEME: -N.p.o., IV famotidine -Start tube feeds with Glucerna after intubation -Monitor H&H closely and transfuse as needed -Retroperitoneal hematoma management per trauma service : -Monitor renal function. Place Rowe catheter. -Known renal tumor needs outpatient follow-up ID: -Check sputum culture -Empiric Rocephin for COPD exacerbation ENDO: -Electrolyte replacement per protocol -Sliding scale insulin. Start Levemir 10 units every 12 PROPH: -Bilateral lower extremity SCDs. famotidine LINES: -Utilize peripheral IVs, central line if needed CC time 45 min excluding procedures Code Status: Full Discussed Condition With: Dr. arnold
--- NOTE | 2018-05-11 17:01 | MH ---
cc: Aaron Tucker MD DATE OF ADMISSION: 05/11/2018 DATE OF ADMISSION: 05/11/2018 ADMITTING PHYSICIAN: Dami Tucker MD, Trauma Surgery. REASON FOR ADMISSION: Mesenteric hematoma and fall. HISTORY OF PRESENT ILLNESS: This 51-year-old male with myotonic muscular dystrophy was brought to the emergency room after a fall in the nursing few days ago. The patient states he was getting out of the shower and his knee buckled, causing him to fall. He fell on his knee and right foot. He was worked up and found to have left retroperitoneal mesenteric hematoma measuring about 10 x 6 cm, which is known significant thus far and further goes, and a tumor in his right kidney which is apparently being followed. The patient is now admitted to us for observation. PAST MEDICAL HISTORY: Myotonic muscular dystrophy, hypercholesteremia, diabetes mellitus. MEDICATIONS: 1. Metformin. 2. Spironolactone. 3. Gemfibrozil. 4. Lasix. ALLERGIES: NO KNOWN ALLERGIES. SOCIAL HISTORY: Does not drink. Smokes about half pack a day. PHYSICAL EXAMINATION: GENERAL: Reveals a 51-year-old male. HEENT: Normocephalic. No trauma to the head. Pupils equally reactive. Extraocular muscles intact. NECK: Supple. Bilateral carotid pulses. No bruits. CHEST: Very atrophic bilateral breath sounds contracted, decreased breath sounds over both lung young. HEART: Regular rate and rhythm. ABDOMEN: Soft. No rebound, no guarding, no masses. EXTREMITIES: Contracted partially, but the patient is apparently able to walk. He is tender over the left lower abdomen and left groin. Proximal and distal pulses are intact. Some swelling of the middle aspect of the knee, but the x-rays were negative. IMPRESSION: A 51-year-old male with muscular dystrophy and intraabdominal hematoma with some degree of hypoxia on BiPAP mask, probably aspirated. PLAN: At this point, the patient will be admitted, treated appropriately and medicine will be consulted. MD RAVI Jain/emre , 04:27 PM , 04:33 PM
[2018-05-11 17:13] LABS: ABG Base Excess 0.1 mmol/L (-2-2); ABG PCO2 57 mmHg (38-42); ABG PO2 79 mmHg (61-120)
[2018-05-11] MEDS ORDERED: Etomidate Inj 40 MG/20 ML Vial IV.PUSH ONE (17:23)
[2018-05-11] MEDS ORDERED: Midazolam Inj 5 MG/ML 1 ML Vial ONE ×2 (17:23→17:24)
[2018-05-11] MEDS ORDERED: Propofol Inj 500 MG/50 ML Vial ONE (17:33)
[2018-05-11] MEDS: Propofol 1000 mg/100 ml Inj 1,000 MG/100 ML BOTTLE IV.CONT PRN ×2 (17:45→19:31)
--- NOTE | 2018-05-11 17:46 | P.PCN ---
Date of procedure: 05/11/18 Pre-op diagnosis: Acute hypercapnic respiratory failure Post-op diagnosis: same Procedure: Emergency endotracheal intubation Patient hypercapnic, somnolent and lethargic. Currently on BiPAP 14/03. Rapid sequence intubation was initiated. Patient was appropriately positioned and was administered etomidate 20 mg IV, Versed 5 mg IV. Neuromuscular paralysis aborted secondary to known muscular dystrophy. I entered the oropharynx with direct laryngoscopy MAC 4 blade and obtained a grade 1 view. Patient was intubated with an 8.0 ET tube on single attempt. There was moderate amount of thick white secretions at the glottic opening. ET tube placement confirmed by directly visualizing the tube passing through the vocal cords, air entry equal bilaterally and, end-tidal CO2 color change. Patient tolerated procedure well. Postprocedure chest x-ray is pending at this time Anesthesia: ANAA Surgeon: Eduardo Massey Estimated blood loss (mL): 0 Pathology: other (sputum culture) Condition: critical Disposition: ICU
--- NOTE | 2018-05-11 18:16 | XR ---
EXAM DATE: 05/11/2018 6:06 PM EDT AGE/SEX: 52 years / Male INDICATIONS: Post intubation. CLINICAL DATA: This is the patient's subsequent encounter. Patient reports that signs and symptoms h ave been present for 1 day and indicates a pain score of Nonresponsive. MEDICAL/SURGICAL HISTORY: Non-responsive. Non-responsive. COMPARISON: C, CHEST 1V SINGLE AP, 05/11/2018. . FINDINGS: ET tube at the corazon. Lungs are under aerated but clear. Minimal parental changes in both bases. There is no pneumothorax. There is no significant pleural effusion CONCLUSION: ET tube at the corazon. Better aeration. Electronically signed by: Luis Hartman MD 05/11/2018 6:15 PM EDT
[2018-05-11 18:23] LABS: ABG Base Excess -0.9 mmol/L (-2-2); ABG PCO2 62 mmHg (38-42); ABG PO2 85 mmHg (61-120)
[2018-05-11 19:20] LABS: Bilirubin,Urine Negative (Negative); Clarity,Urine Clear (Clear); Color,Urine Yellow (Yellw/Straw); Glucose,Urine (UA) 500 or Greater mg/dL (Negative); Leukocyte Esterase,Urine Negative (Negative); Mucus,Urine Few /lpf (Occasional); Nitrite,Urine Negative (Negative); Specific Gravity,Urine 1.051 (1.002-1.035)
[2018-05-11] MEDS: Insulin Detemir Inj 1,000 UNIT/10 ML Vial SQ SCH (20:58)
[2018-05-11] MEDS: Senna/Docusate Sodium 8.6/50 MG Tablet PO SCH (20:58)
[2018-05-11] MEDS ORDERED: Dextrose 50% in Water 50 ML Vial IV.PUSH PRN (21:26)
[2018-05-11] MEDS: MethylPREDNISolone Sod Succinate Inj 40 MG/ML Vial IV.PUSH SCH (23:00)
[2018-05-12] MEDS: Insulin NovoLOG Aspart Correctional Sugar Inj SQ SCH ×4 (00:11→17:52)
[2018-05-12] MEDS: Propofol 1000 mg/100 ml Inj 1,000 MG/100 ML BOTTLE IV.CONT PRN ×5 (00:52→20:55)
[2018-05-12 05:04] LABS: Baso % (Auto) 0.1 % (0.0-2.0); Eos % (Auto) 0.1 % (0.0-4.0); Hematocrit 33.3 % (39.0-51.0); Hemoglobin 10.7 gm/dL (13.0-17.0); Lymph # (Auto) 0.8 th/mm3 (1.0-4.8); Lymph % (Auto) 5.6 % (9.0-44.0); Mean Corpuscular HGB Conc 32.2 % (32.0-36.0); Mean Platelet Volume 10.7 fL (7.0-11.0); Mono # (Auto) 0.7 th/mm3 (0.0-0.9); Mono % (Auto) 4.8 % (0.0-8.0); Neut # (Auto) 13.6 th/mm3 (1.8-7.7); Neut % (Auto) 89.4 % (16.0-70.0); Platelet Count 186 th/mm3 (150-450); Red Blood Count 3.97 mil/mm3 (4.50-5.90); Red Cell Distribution Width 15.1 % (11.6-17.2); White Blood Count 15.2 th/mm3 (4.0-11.0)
[2018-05-12 05:37] LABS: Alanine Aminotransferase 22 U/L (12-78); Albumin 2.4 g/dL (3.4-5.0); Alkaline Phosphatase 67 U/L (45-117); Anion Gap 7 meq/L (5-15); Aspartate Aminotransferase 16 U/L (15-37); Blood Urea Nitrogen 17 mg/dL (7-18); Carbon Dioxide 26.1 meq/L (21.0-32.0); Chloride 108 meq/L (98-107); Glomerular Filtration Rate Greater Than 89 mL/min (>89); Glucose,Random 190 mg/dL (74-106); Potassium 3.9 meq/L (3.5-5.1); Sodium 141 meq/L (136-145); Total Protein 5.8 g/dL (6.4-8.2)
[2018-05-12] MEDS: MethylPREDNISolone Sod Succinate Inj 40 MG/ML Vial IV.PUSH SCH ×3 (06:03→22:12)
[2018-05-12] MEDS: Pantoprazole Inj 40 MG Vial IV.PUSH SCH (06:28)
[2018-05-12 06:30] LABS: ABG Base Excess -0.7 mmol/L (-2-2); ABG PCO2 38 mmHg (38-42); ABG PO2 70 mmHg (61-120)
[2018-05-12] MEDS: Chlorhexidine 0.12% Oral Kit 15 ML UDC OROPHARYNG SCH ×2 (08:05→20:01)
[2018-05-12] MEDS: Senna/Docusate Sodium 8.6/50 MG Tablet PO SCH ×2 (08:27→20:14)
[2018-05-12] MEDS: Insulin Detemir Inj 1,000 UNIT/10 ML Vial SQ SCH ×2 (08:27→20:13)
--- NOTE | 2018-05-12 09:23 | P.PNCC ---
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 Patient was found to have a large left retroperitoneal mesenteric hematoma measuring about 10 x 6 cm, also had right renal tumor which apparently had been followed per Dr. Julio's notes. Patient's initial ABG showed pH of 7.28 PCO2 of 63 on room air and he was placed on a BiPAP. Repeat ABG after several hours on BiPAP setting 12/5 showed pH 7.28 PCO2 unchanged at 62. Critical care medicine was consulted for hypercapnic respiratory failure on BiPAP. I evaluated the patient in the ICU. He is somnolent but intermittently wakes up to command. Currently he is on 18/6 pressure setting on BiPAP. Patient is tachycardic and lethargic. He has history of myotonic muscular dystrophy with atrophied extremities. He is also a smoker. Repeat ABG on above settings shows no significant improvement. His pH remains at 7.28. Patient is at high risk of decompensation due to known muscular dystrophy. Proceed with endotracheal intubation SUBJ 05/12/18: Remains intubated sedated with propofol. On attempted sedation vacation patient became agitated. Start Precedex. Niko fever up to 101. Sputum culture already sent also send blood and urine culture. Continue Rocephin for now Objective Vital Signs / I&O: Vital Signs 05/11/18 11:12 05/11/18 11:15 05/11/18 12:20 Temperature 98.9 F Pulse Rate 122 H Respiratory Rate 27 H Blood Pressure 166/96 H Pulse Oximetry 87 L 95 95 05/11/18 13:25 05/11/18 13:30 05/11/18 14:30 Temperature Pulse Rate 110 H 108 H Respiratory Rate 18 17 Blood Pressure 158/96 H 140/86 Pulse Oximetry 96 96 96 05/11/18 15:32 05/11/18 16:00 05/11/18 16:01 Temperature 97.9 F Pulse Rate 78 110 H Respiratory Rate 12 12 Blood Pressure 131/67 135/81 Pulse Oximetry 93 L 95 05/11/18 17:45 05/11/18 20:00 05/11/18 20:22 Temperature 99.3 F Pulse Rate 106 H 108 H Respiratory Rate 16 16 16 Blood Pressure 111/70 Pulse Oximetry 97 100 98 08/15/18 23:22 05/12/18 00:00 05/12/18 01:02 Temperature 101.0 F H Pulse Rate 101 H 95 H Respiratory Rate 16 16 19 Blood Pressure 114/78 Pulse Oximetry 100 99 05/12/18 03:20 05/12/18 04:00 05/12/18 04:03 Temperature 100.5 F H Pulse Rate 96 H 100 H Respiratory Rate 16 16 16 Blood Pressure 120/78 Pulse Oximetry 98 98 05/12/18 07:43 05/12/18 07:54 05/12/18 08:00 Temperature 97.8 F Pulse Rate 83 80 Respiratory Rate 17 16 16 Blood Pressure 118/78 Pulse Oximetry 99 98 05/12/18 09:00 Temperature Pulse Rate 87 Respiratory Rate Blood Pressure Pulse Oximetry Intake & Output 05/11/18 05/12/18 05/12/18 18:59 06:59 18:59 Intake Total 1999 1553 / 1553 Output Total 200 / 200 625 / 625 Balance 1800 / 1800 928 / 928 Weight 81.647 kg 75.8 kg Intake: IV 1999 1400 / 1400 LR 1000 mL Inj 1,000 ML @ 100 1000 / 1000 mls/hr IV.CONT .Q10H ON LICENSE OF [facility] Rx#: [id number] Diprivan 1000 mg/100 ml Inj 1, 300 / 300 000 mg In 100 ml @ 5 MCG/KG/MIN 2.449 mls/hr IV.CONT TITRATE PRN Rx#:[id number] NS Inj 1,000 ML @ Wide Open IV. 1999 SIG BOLUS ONE Rx#:[id number] Rocephin Inj 1,000 MG In NS Inj 100 / 100 100 ML @ 200 mls/hr IV.SIG Q24H ON LICENSE OF [facility] Rx#:[id number] Tube Feeding 153 / 153 Output: Urine 200 / 200 Urine Amount (Catheter) 625 / 625 Indwelling Urethral Catheter 625 / 625 Other: # Incontinent Voids 1 Result Diagrams: 05/12/18 04:13 05/12/18 04:13 Objective Remarks: GENERAL: Well-nourished white male lying in bed, intubated sedated SKIN: Focused skin assessment warm/dry. HEAD: Atraumatic. Normocephalic. EYES: Pupils equal and round. No scleral icterus. No injection or drainage. ENT: No nasal bleeding or discharge. Orotracheally intubated NECK: Trachea midline. No JVD. CARDIOVASCULAR: Tachycardic rate and rhythm. No murmur appreciated. RESPIRATORY: PRVC/AC. Breath sounds equal bilaterally. Air entry diminished bilaterally GASTROINTESTINAL: Abdomen soft, distended, tender in the left lower quadrant and flank, No ecchymoses MUSCULOSKELETAL: Limb muscles upper and lower extremities are atrophied NEUROLOGICAL: Sedated with propofol localizes to pain. No focal deficits moving all extremities spontaneously Assessment and Plan - Assessment and Plan Plan: ASSESSMENT: Acute hypercapnic respiratory failure Probable COPD with exacerbation Status post fall with large left-sided retroperitoneal hematoma Diabetes mellitus with hyperglycemia Known renal tumor Myotonic muscular dystrophy Tobacco abuse Obesity PLAN: NEURO: -Propofol for sedation -Start Precedex to facilitate ventilator weaning -PT/OT daily RESP: -Intubated and placed on mechanical ventilation 05/11/18 -PRVC/AC Ventilator bundle -DuoNeb every 4 hours scheduled and as needed -Sputum culture, IV Solu-Medrol 40 mg every 8 hours -Daily MIP, VC, SBT CV: -Normal saline IV fluids 3L bolus and maintenance at 84 mL/h -Monitor blood pressure and heart rate close GI/HEME: -N.p.o., IV famotidine. Tube feeds with Glucerna -Monitor H&H closely and transfuse as needed. Hb 10.7 today -Retroperitoneal hematoma management per trauma service : -Monitor renal function. Rowe catheter. -Known renal tumor needs outpatient follow-up ID: -F/u sputum culture. Send blood and urine culture -Empiric Rocephin for COPD exacerbation -As needed Tylenol for fever ENDO: -Electrolyte replacement per protocol -Sliding scale insulin. Levemir 10 units every 12 PROPH: -Bilateral lower extremity SCDs. famotidine LINES: -Utilize peripheral IVs, central line if needed CC time 35 min excluding procedures Patient remains critically ill from hypercapnic respiratory failure and trauma related retroperitoneal bleed. Continue to monitor hemoglobin closely. Patient has myotonic muscular dystrophy which may be challenging to wean off the ventilator Code Status: Full Discussed Condition With: Dr. Rey
[2018-05-12] MEDS: Dexmedetomidine Inj 200 MCG in Sodium Chlor 0.9% Inj 48 ML IV.CONT PRN ×2 (10:42→11:15)
--- NOTE | 2018-05-12 11:21 | P.DIET ---
Nutritional Evaluation Type of nutrition evaluation: initial Nutrition consult regarding: Tube Feeding Subjective Subjective Comments: S/P fall at NH Objective - Diagnosis Retroperitoneal Bleeding - Objective % IBW: 117 (IBW 142#) Body Weight Used for Calculations: Actual (75.8 kg) Energy Needs - Lower Range (kCal/kg): 25 Energy Needs - Upper Range (kCal/kg): 30 Lower Limit kCal/kg (kCals): 1,895 Upper Limit kCal/kg (kCals): 2,274 Lower Limit Protein Factor (Grams per Kg): 1.0 Upper Limit Protein Factor (Grams per Kg): 1.5 Lower Protein Needs (Protein): 76 Upper Protein Needs (Protein): 114 Fluid Factor (ml/kg): 30 Estimated Fluid Needs (ml): 2,274 Dietitian Reviewed in Medical Record: Curent medications, Intake & Output, Labs , Medical history, Tube feeding Diet Order: NPO Objective Comments: Med Hx includes Myotonic Muscular Dystrophy, DM glu 190 Feeding - Current Tube Feeding Tube Feeding Product: Glucerna 1.5 Tube Feeding Rate: 20 (mls/hr) Diprivan Rate: 20 Lipid kCals From Diprivan: 528 Assessment Assessment: Pt is vented and sedated and needs TFing to meet nutritional needs. Current order is for Glucerna 1.5 @ 45 mls/hr goal rate. To meet needs, recommend increase goal rate to 55 mls/hr to provide 1980 kcals, 109 gms protein and 1002 mls of free water. Some additional kcals will be provided by propofol(1.1 kcal/ ml). Recommendations: Glucerna 1.5 @ 55 mls/hr goal Dietitian to Monitor: Lab values, Intake & Output, Tube feeding tolerance, Weight change, Medical course
[2018-05-12] MEDS: Oral Hygiene Kit OROPHARYNG SCH ×2 (11:58→16:36)
[2018-05-13] MEDS: Oral Hygiene Kit OROPHARYNG SCH ×4 (00:07→16:49)
[2018-05-13] MEDS: Insulin NovoLOG Aspart Correctional Sugar Inj SQ SCH ×4 (00:07→17:30)
[2018-05-13] MEDS: Propofol 1000 mg/100 ml Inj 1,000 MG/100 ML BOTTLE IV.CONT PRN ×6 (00:48→21:23)
[2018-05-13] MEDS: MethylPREDNISolone Sod Succinate Inj 40 MG/ML Vial IV.PUSH SCH ×3 (05:24→21:18)
[2018-05-13] MEDS: Pantoprazole Inj 40 MG Vial IV.PUSH SCH (05:24)
[2018-05-13 05:52] LABS: ABG Base Excess 0.3 mmol/L (-2-2); ABG PCO2 34 mmHg (38-42); ABG PO2 79 mmHg (61-120)
--- NOTE | 2018-05-13 05:58 | XR ---
EXAM DATE: 05/13/2018 5:48 AM EDT AGE/SEX: 52 years / Male INDICATIONS: Shortness of breath. Possible respiratory disease. CLINICAL DATA: This is the patient's subsequent encounter. Patient reports that signs and symptoms h ave been present for 1 day and indicates a pain score of Nonresponsive. MEDICAL/SURGICAL HISTORY: Non-responsive. Non-responsive. COMPARISON: C, CHEST 1V SINGLE AP, 05/11/2018. . FINDINGS: The ET tube tip is 2.4 cm from the corazon. The NG tube is directed into the stomach. The heart size i s normal. There is minimal increased density at the bases. There is blunting of the left costophrenic angle. CONCLUSION: Minimal suspected atelectasis or consolidation at the bases. There may be a minimal left pleural effu mesfin. Electronically signed by: Bryson Barton MD 05/13/2018 5:56 AM EDT
--- NOTE | 2018-05-13 07:00 | P.PNCC ---
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 Patient was found to have a large left retroperitoneal mesenteric hematoma measuring about 10 x 6 cm, also had right renal tumor which apparently had been followed per Dr. Julio's notes. Patient's initial ABG showed pH of 7.28 PCO2 of 63 on room air and he was placed on a BiPAP. Repeat ABG after several hours on BiPAP setting 12/5 showed pH 7.28 PCO2 unchanged at 62. Critical care medicine was consulted for hypercapnic respiratory failure on BiPAP. I evaluated the patient in the ICU. He is somnolent but intermittently wakes up to command. Currently he is on 18/6 pressure setting on BiPAP. Patient is tachycardic and lethargic. He has history of myotonic muscular dystrophy with atrophied extremities. He is also a smoker. Repeat ABG on above settings shows no significant improvement. His pH remains at 7.28. Patient is at high risk of decompensation due to known muscular dystrophy. Proceed with endotracheal intubation SUBJ 05/12/18: Remains intubated sedated with propofol. On attempted sedation vacation patient became agitated. Start Precedex. Niko fever up to 101. Sputum culture already sent also send blood and urine culture. Continue Rocephin for now. 05/13: CXR with bilateral volume loss. Requiring FiO2 75% now. Hyperglycemia persists, Levemir dosing has been doubled. Continue Glucerna 1.5. Objective Vital Signs / I&O: Vital Signs 05/12/18 07:43 05/12/18 07:54 05/12/18 08:00 Temperature 97.8 F Pulse Rate 83 80 Respiratory Rate 17 16 16 Blood Pressure 118/78 Pulse Oximetry 99 98 05/12/18 09:00 05/12/18 11:43 05/12/18 11:44 Temperature Pulse Rate 87 86 Respiratory Rate 16 16 Blood Pressure Pulse Oximetry 94 L 05/12/18 12:00 05/12/18 14:41 05/12/18 16:00 Temperature 98.4 F 98.1 F Pulse Rate 77 87 88 Respiratory Rate 16 16 16 Blood Pressure 110/68 112/72 Pulse Oximetry 96 96 05/12/18 19:30 05/12/18 20:00 05/13/18 00:00 Temperature 98.4 F 98 F Pulse Rate 93 H 85 90 Respiratory Rate 16 16 16 Blood Pressure 130/81 115/75 Pulse Oximetry 91 L 94 L 05/13/18 00:04 05/13/18 01:00 05/13/18 03:04 Temperature Pulse Rate 77 74 Respiratory Rate 16 16 Blood Pressure Pulse Oximetry 93 L 92 L 98 05/13/18 04:00 Temperature 97.7 F Pulse Rate 77 Respiratory Rate 17 Blood Pressure 103/61 Pulse Oximetry 97 Intake & Output 05/12/18 05/12/18 05/13/18 06:59 18:59 06:59 Intake Total 1553 / 1553 1500 / 1500 1539 / 1539 Output Total 625 / 625 750 / 750 775 / 775 Balance 928 / 928 750 / 750 764 / 764 Weight 75.8 kg 80.1 kg Intake: IV 1400 / 1400 1303 / 1303 1300 / 1300 Precedex Inj 200 MCG In NS Inj 3 / 3 48 ML @ 0.2 MCG/KG/HR 3.79 mls/ hr IV.CONT TITRATE PRN Rx#: [id number] LR 1000 mL Inj 1,000 ML @ 100 1000 / 1000 1000 / 1000 1000 / 1000 mls/hr IV.CONT .Q10H [facility] Rx#: [id number] Diprivan 1000 mg/100 ml Inj 1, 300 / 300 200 / 200 300 / 300 000 mg In 100 ml @ 5 MCG/KG/MIN 2.449 mls/hr IV.CONT TITRATE PRN Rx#:[id number] Rocephin Inj 1,000 MG In NS Inj 100 / 100 100 / 100 100 ML @ 200 mls/hr IV.SIG Q24H [facility] Rx#:[id number] Tube Feeding 153 / 153 197 / 197 239 / 239 Output: Urine Amount (Catheter) 625 / 625 750 / 750 775 / 775 Indwelling Urethral Catheter 625 / 625 750 / 750 775 / 775 Other: Date of Last Bowel Movement 05/09/18 # Bowel Movements 0 Result Diagrams: 05/12/18 04:13 05/12/18 04:13 Objective Remarks: GENERAL: Well-nourished white male lying in bed, intubated sedated SKIN: Focused skin assessment warm/dry. HEAD: Atraumatic. Normocephalic. EYES: Pupils equal and round. No scleral icterus. No injection or drainage. ENT: No nasal bleeding or discharge. Orotracheally intubated NECK: Trachea midline. CARDIOVASCULAR: Normal S1-S2, regular rate and rhythm. No JVD. RESPIRATORY: PRVC/AC ventilator mode.. Breath sounds equal bilaterally. Air entry bases diminished bilaterally GASTROINTESTINAL: Abdomen soft, moderately distended, No ecchymoses. No guarding. Bowel sounds present. MUSCULOSKELETAL: Limb muscles upper and lower extremities are atrophied. Well- perfused. NEUROLOGICAL: Sedated with propofol localizes to pain. No focal deficits moving all extremities spontaneously Assessment and Plan - Assessment and Plan Plan: ASSESSMENT: Acute hypercapnic respiratory failure Probable COPD with exacerbation Status post fall with large left-sided retroperitoneal hematoma Diabetes mellitus with hyperglycemia Known renal tumor Myotonic muscular dystrophy Tobacco abuse Obesity PLAN: NEURO: -Propofol for sedation -Start Precedex to facilitate ventilator weaning -PT/OT daily -Try to avoid narcotics. RESP: -Intubated and placed on mechanical ventilation 05/11/18 -PRVC/AC Ventilator bundle -DuoNeb every 4 hours scheduled and as needed -Sputum culture, IV Solu-Medrol 40 mg every 8 hours -Daily MIP, VC, SBT -PEEP 10, follow lung volumes. CV: -Normal saline IV fluids 3L bolus and maintenance at 84 mL/h -Monitor blood pressure and heart rate close GI/HEME: -N.p.o., IV famotidine. Tube feeds with Glucerna -Monitor H&H closely and transfuse as needed. Hb 10.7 today -Retroperitoneal hematoma management per trauma service : -Monitor renal function. Rowe catheter. -Known renal tumor needs outpatient follow-up ID: -F/u sputum culture. Send blood and urine culture -Empiric Rocephin for COPD exacerbation -As needed Tylenol for fever ENDO: -Electrolyte replacement per protocol -Sliding scale insulin. Increase Levemir to 20 units every 12 PROPH: -Bilateral lower extremity SCDs. famotidine LINES: -Utilize peripheral IVs, central line if needed CC time 35 min excluding procedures Patient remains critically ill from hypercapnic respiratory failure and trauma related retroperitoneal bleed. Continue to monitor hemoglobin and hemodynamics closely. Patient has myotonic muscular dystrophy which may be challenging to wean off the ventilator. Immediate goal is to recruit basal lung volume and wean from ventilator.
[2018-05-13] MEDS: Chlorhexidine 0.12% Oral Kit 15 ML UDC OROPHARYNG SCH ×2 (07:17→19:12)
[2018-05-13] MEDS: Senna/Docusate Sodium 8.6/50 MG Tablet PO SCH ×2 (08:08→21:19)
[2018-05-13] MEDS: Insulin Detemir Inj 1,000 UNIT/10 ML Vial SQ SCH ×2 (08:08→21:18)
[2018-05-13 08:18] LABS: Hematocrit 27.7 % (39.0-51.0); Hemoglobin 9.2 gm/dL (13.0-17.0); Mean Corpuscular HGB Conc 33.1 % (32.0-36.0); Mean Corpuscular Hemoglobin 27.9 pg (27.0-34.0); Mean Corpuscular Volume 84.4 fL (80.0-100.0); Platelet Count 178 th/mm3 (150-450); Red Blood Count 3.28 mil/mm3 (4.50-5.90); Red Cell Distribution Width 15.7 % (11.6-17.2); White Blood Count 10.2 th/mm3 (4.0-11.0)
[2018-05-13 08:41] LABS: Albumin 1.9 g/dL (3.4-5.0); Anion Gap 9 meq/L (5-15); Aspartate Aminotransferase 9 U/L (15-37); Blood Urea Nitrogen 19 mg/dL (7-18); Calcium 8.7 mg/dL (8.5-10.1); Chloride 111 meq/L (98-107); Glomerular Filtration Rate Greater Than 89 mL/min (>89); Glucose,Random 261 mg/dL (74-106); Potassium 3.5 meq/L (3.5-5.1); Sodium 144 meq/L (136-145)
[2018-05-13 08:42] LABS: Alanine Aminotransferase 17 U/L (12-78)
[2018-05-13 08:44] LABS: Alkaline Phosphatase 60 U/L (45-117); Total Protein 5.7 g/dL (6.4-8.2)
[2018-05-14] MEDS: Oral Hygiene Kit OROPHARYNG SCH ×4 (00:52→17:40)
[2018-05-14] MEDS: Insulin NovoLOG Aspart Correctional Sugar Inj SQ SCH ×4 (00:56→20:35)
[2018-05-14] MEDS: Propofol 1000 mg/100 ml Inj 1,000 MG/100 ML BOTTLE IV.CONT PRN ×5 (02:47→21:05)
[2018-05-14] MEDS: MethylPREDNISolone Sod Succinate Inj 40 MG/ML Vial IV.PUSH SCH ×3 (06:20→21:18)
[2018-05-14] MEDS: Pantoprazole Inj 40 MG Vial IV.PUSH SCH (06:20)
[2018-05-14] MEDS: Insulin Detemir Inj 1,000 UNIT/10 ML Vial SQ SCH ×2 (09:31→21:21)
[2018-05-14] MEDS: Senna/Docusate Sodium 8.6/50 MG Tablet PO SCH ×2 (09:31→21:20)
[2018-05-14] MEDS: Chlorhexidine 0.12% Oral Kit 15 ML UDC OROPHARYNG SCH ×2 (09:31→21:07)
[2018-05-14] MEDS ORDERED: Magnesium Citrate Liq 300 ML Bottle PO ONE (10:44)
--- NOTE | 2018-05-14 10:54 | P.PNCC ---
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 Patient was found to have a large left retroperitoneal mesenteric hematoma measuring about 10 x 6 cm, also had right renal tumor which apparently had been followed per Dr. Julio's notes. Patient's initial ABG showed pH of 7.28 PCO2 of 63 on room air and he was placed on a BiPAP. Repeat ABG after several hours on BiPAP setting 12/5 showed pH 7.28 PCO2 unchanged at 62. Critical care medicine was consulted for hypercapnic respiratory failure on BiPAP. I evaluated the patient in the ICU. He is somnolent but intermittently wakes up to command. Currently he is on 18/ pressure setting on BiPAP. Patient is tachycardic and lethargic. He has history of myotonic muscular dystrophy with atrophied extremities. He is also a smoker. Repeat ABG on above settings shows no significant improvement. His pH remains at 7.28. Patient is at high risk of decompensation due to known muscular dystrophy. Proceed with endotracheal intubation SUBJ 05/12/18: Remains intubated sedated with propofol. On attempted sedation vacation patient became agitated. Start Precedex. Niko fever up to 101. Sputum culture already sent also send blood and urine culture. Continue Rocephin for now. 05/13: CXR with bilateral volume loss. Requiring FiO2 75% now. Hyperglycemia persists, Levemir dosing has been doubled. Continue Glucerna 1.5. 05/14: Patient still requiring 60% FiO2. The culprit would appear to be bibasilar atelectasis but the lower lobes were not particularly impressive for collapse on the CAT scan of the abdomen. Will try a recruitment maneuver today and see if we can achieve better oxygenation. The patient requires very large amounts of propofol the prevent agitation. I am reluctant to use benzodiazepines or narcotics in someone with a muscle weakness disorder so will try an atypical antipsychotic. Objective Vital Signs / I&O: Vital Signs 05/13/18 12:00 05/13/18 12:02 05/13/18 12:05 Temperature 98.4 F Pulse Rate 92 H 73 Respiratory Rate 21 16 16 Blood Pressure 115/66 Pulse Oximetry 99 100 05/13/18 16:00 05/13/18 16:23 05/13/18 19:53 Temperature 97.8 F Pulse Rate 69 73 67 Respiratory Rate 16 Blood Pressure 113/80 Pulse Oximetry 98 95 99 05/13/18 20:00 05/13/18 23:46 05/14/18 00:00 Temperature 97.7 F 97.5 F L Pulse Rate 68 66 Respiratory Rate Blood Pressure 107/68 109/70 Pulse Oximetry 98 96 95 05/14/18 03:28 05/14/18 04:00 05/14/18 08:29 Temperature 97.8 F Pulse Rate 68 85 109 H Respiratory Rate Blood Pressure 129/76 Pulse Oximetry 97 97 94 L Intake & Output 05/13/18 05/14/18 05/14/18 18:59 06:59 18:59 Intake Total 2687 / 2687 1736 / 1736 Output Total 400 / 400 1100 / 1100 Balance 2287 / 2287 636 / 636 Weight 78.4 kg Intake: IV 2400 / 2400 1300 / 1300 LR 1000 mL Inj 1,000 ML @ 100 2000 / 2000 1000 / 1000 mls/hr IV.CONT .Q10H [facility] Rx#: [id number] Diprivan 1000 mg/100 ml Inj 1, 300 / 300 300 / 300 000 mg In 100 ml @ 5 MCG/KG/MIN 2.449 mls/hr IV.CONT TITRATE PRN Rx#:[id number] Rocephin Inj 1,000 MG In NS Inj 100 / 100 100 ML @ 200 mls/hr IV.SIG Q24H [facility] Rx#:[id number] Tube Feeding 287 / 287 436 / 436 Output: Urine Amount (Catheter) 400 / 400 1100 / 1100 Indwelling Urethral Catheter 400 / 400 1100 / 1100 Other: Date of Last Bowel Movement 05/13/18 05/13/18 # Bowel Movements 1 1 Result Diagrams: 05/13/18 08:01 05/13/18 08:01 Objective Remarks: GENERAL: Well-nourished white male lying in bed, intubated sedated, intermittently agitated. SKIN: Focused skin assessment warm/dry. HEAD: Atraumatic. Normocephalic. EYES: Pupils equal and round. No scleral icterus. No injection or drainage. ENT: No nasal bleeding or discharge. Orotracheally intubated NECK: Trachea midline. CARDIOVASCULAR: Normal S1-S2, regular rate and rhythm. No JVD. RESPIRATORY: PRVC/AC ventilator mode.. Breath sounds equal bilaterally. Air entry bases diminished bilaterally GASTROINTESTINAL: Abdomen soft, moderately and chronically distended, no ecchymoses. No guarding. Bowel sounds active. MUSCULOSKELETAL: Limb muscles upper and lower extremities are atrophied. Well- perfused. NEUROLOGICAL: Sedated with propofol localizes to pain. No focal deficits moving all extremities spontaneously Assessment and Plan - Assessment and Plan Plan: ASSESSMENT: Acute hypercapnic respiratory failure Probable COPD with exacerbation Status post fall with large left-sided retroperitoneal hematoma Diabetes mellitus with hyperglycemia Known renal tumor Myotonic muscular dystrophy Tobacco abuse Obesity PLAN: NEURO: -Propofol for sedation -Start Precedex to facilitate ventilator weaning -PT/OT daily -Try to avoid narcotics and benzodiazepine sedatives -Start Zyprexa twice daily RESP: -Intubated and placed on mechanical ventilation 05/11/18 -PRVC/AC Ventilator bundle -DuoNeb every 4 hours scheduled and as needed -Sputum culture, IV Solu-Medrol 40 mg every 8 hours -Daily MIP, VC, SBT -PEEP 10, follow lung volumes. -Convert to APRV ventilatory mode. CV: -Normal saline IV fluids 3L bolus and maintenance at 84 mL/h -Monitor blood pressure and heart rate close GI/HEME: -N.p.o., IV famotidine. Tube feeds with Glucerna -Monitor H&H closely and transfuse as needed. Hb 10.7 today -Retroperitoneal hematoma management per trauma service -signed off. : -Monitor renal function. Rowe catheter. -Known renal tumor needs outpatient follow-up ID: -F/u sputum culture. Send blood and urine culture -Empiric Rocephin for COPD exacerbation -As needed Tylenol for fever ENDO: -Electrolyte replacement per protocol -Sliding scale insulin. Increase Levemir to 20 units every 12 PROPH: -Bilateral lower extremity SCDs. famotidine LINES: -Utilize peripheral IVs, central line if needed CC time 35 min excluding procedures Patient remains critically ill from hypercapnic respiratory failure and trauma related retroperitoneal bleed. Continue to monitor hemoglobin and hemodynamics closely. Patient has myotonic muscular dystrophy which may be challenging to wean off the ventilator. Immediate goal is to recruit basal lung volume and wean from ventilator. Will convert to a recruitment maneuver today.
[2018-05-14 18:09] LABS: ABG PCO2 40 mmHg (38-42); ABG PO2 96 mmHg (61-120)
[2018-05-15] MEDS: Oral Hygiene Kit OROPHARYNG SCH ×4 (00:36→17:32)
[2018-05-15] MEDS: Insulin NovoLOG Aspart Correctional Sugar Inj SQ SCH ×4 (00:37→18:02)
[2018-05-15] MEDS: Propofol 1000 mg/100 ml Inj 1,000 MG/100 ML BOTTLE IV.CONT PRN ×3 (03:23→22:48)
[2018-05-15 05:22] LABS: Baso % (Auto) 0.1 % (0.0-2.0); Hematocrit 24.8 % (39.0-51.0); Hemoglobin 8.1 gm/dL (13.0-17.0); Lymph # (Auto) 0.9 th/mm3 (1.0-4.8); Lymph % (Auto) 11.5 % (9.0-44.0); Mean Corpuscular HGB Conc 32.8 % (32.0-36.0); Mean Corpuscular Hemoglobin 27.6 pg (27.0-34.0); Mean Corpuscular Volume 84.3 fL (80.0-100.0); Mean Platelet Volume 10.4 fL (7.0-11.0); Mono # (Auto) 0.5 th/mm3 (0.0-0.9); Mono % (Auto) 6.3 % (0.0-8.0); Neut # (Auto) 6.4 th/mm3 (1.8-7.7); Neut % (Auto) 82.1 % (16.0-70.0); Platelet Count 223 th/mm3 (150-450); Red Blood Count 2.94 mil/mm3 (4.50-5.90); White Blood Count 7.7 th/mm3 (4.0-11.0)
[2018-05-15 05:33] LABS: ABG Base Excess 3.6 mmol/L (-2-2); ABG PCO2 39 mmHg (38-42); ABG PO2 79 mmHg (61-120)
[2018-05-15 05:53] LABS: Anion Gap 10 meq/L (5-15); Blood Urea Nitrogen 33 mg/dL (7-18); Calcium 8.3 mg/dL (8.5-10.1); Carbon Dioxide 26.8 meq/L (21.0-32.0); Chloride 113 meq/L (98-107); Glomerular Filtration Rate Greater Than 89 mL/min (>89); Glucose,Random 180 mg/dL (74-106); Potassium 4.6 meq/L (3.5-5.1); Sodium 150 meq/L (136-145)
[2018-05-15] MEDS: MethylPREDNISolone Sod Succinate Inj 40 MG/ML Vial IV.PUSH SCH ×3 (05:53→21:28)
[2018-05-15] MEDS: Pantoprazole Inj 40 MG Vial IV.PUSH SCH (05:58)
--- NOTE | 2018-05-15 06:12 | XR ---
EXAM DATE: 05/15/2018 5:38 AM EDT AGE/SEX: 52 years / Male INDICATIONS: Shortness of breath, possible pulmonary disease. CLINICAL DATA: This is the patient's subsequent encounter. Patient reports that signs and symptoms h ave been present for 1 week and indicates a pain score of Nonresponsive. MEDICAL/SURGICAL HISTORY: Diabetes. Multiple sclerosis. None. COMPARISON: C, CHEST 1V SINGLE AP, 05/13/2018. . FINDINGS: The ET tube and NG tube are well placed. The heart size is within normal limits. There is increased d ensity at the bases. The mid and upper lungs are clear. CONCLUSION: Bibasilar suspected areas of mild consolidation or atelectasis. Electronically signed by: Bryson Barton MD 05/15/2018 6:11 AM EDT
--- NOTE | 2018-05-15 06:39 | P.PNCC ---
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 Patient was found to have a large left retroperitoneal mesenteric hematoma measuring about 10 x 6 cm, also had right renal tumor which apparently had been followed per Dr. Julio's notes. Patient's initial ABG showed pH of 7.28 PCO2 of 63 on room air and he was placed on a BiPAP. Repeat ABG after several hours on BiPAP setting 12/5 showed pH 7.28 PCO2 unchanged at 62. Critical care medicine was consulted for hypercapnic respiratory failure on BiPAP. I evaluated the patient in the ICU. He is somnolent but intermittently wakes up to command. Currently he is on 18/6 pressure setting on BiPAP. Patient is tachycardic and lethargic. He has history of myotonic muscular dystrophy with atrophied extremities. He is also a smoker. Repeat ABG on above settings shows no significant improvement. His pH remains at 7.28. Patient is at high risk of decompensation due to known muscular dystrophy. Proceed with endotracheal intubation SUBJ 05/12/18: Remains intubated sedated with propofol. On attempted sedation vacation patient became agitated. Start Precedex. Niko fever up to 101. Sputum culture already sent also send blood and urine culture. Continue Rocephin for now. 05/13: CXR with bilateral volume loss. Requiring FiO2 75% now. Hyperglycemia persists, Levemir dosing has been doubled. Continue Glucerna 1.5. 05/14: Patient still requiring 60% FiO2. The culprit would appear to be bibasilar atelectasis but the lower lobes were not particularly impressive for collapse on the CAT scan of the abdomen. Will try a recruitment maneuver today and see if we can achieve better oxygenation. The patient requires very large amounts of propofol the prevent agitation. I am reluctant to use benzodiazepines or narcotics in someone with a muscle weakness disorder so will try an atypical antipsychotic. 05/15: Although aeration is generally improved, the basilar segments on the chest x-ray remain atelectatic. We will continue with APRV ventilatory mode and push peak pressure to 30. Unfortunately his large abdomen and weak muscles inspires to produce basilar atelectasis. Underlying ventricular function does not appear normal and an echo will help us sort out his ventricular function and pulmonary artery pressures. He is prone to hypoventilation syndrome. If large oxygen gradients persists I will get a pulmonary angiogram but embolus is considerably down on the list of etiologies for hypoxia in this situation. Objective Vital Signs / I&O: Vital Signs 05/14/18 08:00 05/14/18 08:29 05/14/18 09:00 Temperature 98.4 F Pulse Rate 96 H 109 H 84 Respiratory Rate 21 19 Blood Pressure 132/79 Pulse Oximetry 96 94 L 05/14/18 11:24 05/14/18 12:00 05/14/18 16:00 Temperature 98.5 F 98.5 F Pulse Rate 117 H 106 H 100 H Respiratory Rate 26 H 24 25 H Blood Pressure 132/76 141/89 H Pulse Oximetry 93 L 98 96 05/14/18 16:03 05/14/18 20:00 05/14/18 20:37 Temperature 98.3 F Pulse Rate 82 83 Respiratory Rate 32 H 21 47 H Blood Pressure 118/79 Pulse Oximetry 97 96 96 05/14/18 23:13 05/15/18 00:00 05/15/18 03:33 Temperature 98.3 F Pulse Rate 83 75 70 Respiratory Rate 41 H 20 22 Blood Pressure 106/61 Pulse Oximetry 99 96 100 05/15/18 04:00 Temperature 98.7 F Pulse Rate 84 Respiratory Rate 20 Blood Pressure 132/82 Pulse Oximetry Intake & Output 05/14/18 05/14/18 05/15/18 06:59 18:59 06:59 Intake Total 1736 / 1736 1729 / 1729 1300 / 1300 Output Total 1100 / 1100 1850 / 1850 Balance 636 / 636 -121 / -121 1300 / 1300 Weight 78.4 kg Intake: IV 1300 / 1300 1200 / 1200 1300 / 1300 LR 1000 mL Inj 1,000 ML @ 100 1000 / 1000 1000 / 1000 1000 / 1000 mls/hr IV.CONT .Q10H [facility] Rx#: [id number] Diprivan 1000 mg/100 ml Inj 1, 300 / 300 200 / 200 200 / 200 000 mg In 100 ml @ 5 MCG/KG/MIN 2.449 mls/hr IV.CONT TITRATE PRN Rx#:[id number] Rocephin Inj 1,000 MG In NS Inj 100 / 100 100 ML @ 200 mls/hr IV.SIG Q24H [facility] Rx#:[id number] Tube Feeding 436 / 436 529 / 529 Output: Urine Amount (Catheter) 1099 Indwelling Urethral Catheter 1099 Other: Date of Last Bowel Movement 05/13/18 05/13/18 05/13/18 # Bowel Movements 1 0 Result Diagrams: 05/15/18 04:55 05/15/18 04:55 Objective Remarks: GENERAL: Well-nourished white male lying in bed, intubated sedated, intermittently very agitated. SKIN: Focused skin assessment warm/dry. HEAD: Atraumatic. Normocephalic. EYES: Pupils equal and round. No scleral icterus. No injection or drainage. ENT: No nasal bleeding or discharge. NECK: Trachea midline. Intubation oral. CARDIOVASCULAR: Normal S1-S2, regular rate and rhythm. No JVD. RESPIRATORY: PRVC/AC ventilator mode. Breath sounds equal bilaterally. Air entry bases remains diminished bilaterally GASTROINTESTINAL: Abdomen soft, moderately and chronically distended, no ecchymoses. No guarding. Bowel sounds active. MUSCULOSKELETAL: Limb muscles upper and lower extremities are atrophied. Well- perfused. NEUROLOGICAL: Sedated with propofol localizes to pain. No focal deficits moving all extremities spontaneously when light Assessment and Plan - Assessment and Plan Plan: ASSESSMENT: Acute hypercapnic respiratory failure Probable COPD with exacerbation Status post fall with large left-sided retroperitoneal hematoma Diabetes mellitus with hyperglycemia Known renal tumor Myotonic muscular dystrophy Tobacco abuse Obesity PLAN: NEURO: -Propofol for sedation -Start Precedex to facilitate ventilator weaning -PT/OT daily -Try to avoid narcotics and benzodiazepine sedatives -Start Zyprexa twice daily 05/14. RESP: -Intubated and placed on mechanical ventilation 05/11/18 -PRVC/AC Ventilator bundle -DuoNeb every 4 hours scheduled and as needed -Sputum culture, IV Solu-Medrol 40 mg every 8 hours -Daily MIP, VC, SBT -Convert to APRV ventilatory mode. Increase pressure high. CV: -Normal saline IV fluids 3L bolus and maintenance at 84 mL/h -Monitor blood pressure and heart rate close GI/HEME: -N.p.o., IV famotidine. Tube feeds with Glucerna -Monitor H&H closely and transfuse as needed. Hb 10.7 today -Retroperitoneal hematoma management per trauma service -signed off. -Hemoglobin remains sterile though minor decline consistent with hydration. : -Monitor renal function. Rowe catheter. -Known renal tumor needs outpatient follow-up ID: -F/u sputum culture. Send blood and urine culture -Empiric Rocephin for COPD exacerbation -As needed Tylenol for fever ENDO: -Electrolyte replacement per protocol -Sliding scale insulin. Increase Levemir to 20 units every 12 PROPH: -Bilateral lower extremity SCDs. famotidine LINES: -Utilize peripheral IVs, central line if needed CC time 35 min excluding procedures Patient remains critically ill from hypercapnic respiratory failure and trauma related retroperitoneal bleed. Continue to monitor hemoglobin and hemodynamics closely. Patient has myotonic muscular dystrophy which may be challenging to wean off the ventilator. Immediate goal is to recruit basal lung volume and wean from ventilator. Have converted to a recruitment maneuver with APRV - remains with markedly elevated oxygen diffusion gradient and ventilator dependent.
[2018-05-15] MEDS: Chlorhexidine 0.12% Oral Kit 15 ML UDC OROPHARYNG SCH ×2 (08:54→21:27)
[2018-05-15] MEDS: Insulin Detemir Inj 1,000 UNIT/10 ML Vial SQ SCH ×2 (08:54→21:27)
[2018-05-15] MEDS: Senna/Docusate Sodium 8.6/50 MG Tablet PO SCH ×2 (08:54→22:05)
[2018-05-16] MEDS: Oral Hygiene Kit OROPHARYNG SCH ×4 (00:22→17:20)
[2018-05-16] MEDS: Insulin NovoLOG Aspart Correctional Sugar Inj SQ SCH ×4 (02:14→18:08)
[2018-05-16] MEDS: Propofol 1000 mg/100 ml Inj 1,000 MG/100 ML BOTTLE IV.CONT PRN ×4 (05:12→20:44)
[2018-05-16 06:03] LABS: Baso % (Auto) 0.2 % (0.0-2.0); Eos % (Auto) 0.4 % (0.0-4.0); Hematocrit 24.6 % (39.0-51.0); Hemoglobin 7.9 gm/dL (13.0-17.0); Lymph # (Auto) 0.8 th/mm3 (1.0-4.8); Lymph % (Auto) 8.1 % (9.0-44.0); Mean Corpuscular HGB Conc 31.9 % (32.0-36.0); Mean Corpuscular Hemoglobin 27.6 pg (27.0-34.0); Mean Corpuscular Volume 86.5 fL (80.0-100.0); Mean Platelet Volume 11.3 fL (7.0-11.0); Mono # (Auto) 0.6 th/mm3 (0.0-0.9); Mono % (Auto) 6.6 % (0.0-8.0); Neut # (Auto) 8.1 th/mm3 (1.8-7.7); Neut % (Auto) 84.7 % (16.0-70.0); Platelet Count 146 th/mm3 (150-450); Red Blood Count 2.85 mil/mm3 (4.50-5.90); Red Cell Distribution Width 15.9 % (11.6-17.2); White Blood Count 9.6 th/mm3 (4.0-11.0)
[2018-05-16 06:09] LABS: Anion Gap 7 meq/L (5-15); Blood Urea Nitrogen 39 mg/dL (7-18); Calcium 8.2 mg/dL (8.5-10.1); Carbon Dioxide 24.5 meq/L (21.0-32.0); Chloride 114 meq/L (98-107); Glomerular Filtration Rate Greater Than 89 mL/min (>89); Glucose,Random 170 mg/dL (74-106); Potassium 5.2 meq/L (3.5-5.1); Sodium 145 meq/L (136-145)
[2018-05-16] MEDS: Pantoprazole Inj 40 MG Vial IV.PUSH SCH (06:09)
[2018-05-16] MEDS: MethylPREDNISolone Sod Succinate Inj 40 MG/ML Vial IV.PUSH SCH (06:10)
[2018-05-16 06:28] LABS: ABG Base Excess 4.7 mmol/L (-2-2); ABG PCO2 35 mmHg (38-42); ABG PO2 159 mmHg (61-120)
--- NOTE | 2018-05-16 07:04 | P.PNCC ---
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 Patient was found to have a large left retroperitoneal mesenteric hematoma measuring about 10 x 6 cm, also had right renal tumor which apparently had been followed per Dr. Julio's notes. Patient's initial ABG showed pH of 7.28 PCO2 of 63 on room air and he was placed on a BiPAP. Repeat ABG after several hours on BiPAP setting 12/5 showed pH 7.28 PCO2 unchanged at 62. Critical care medicine was consulted for hypercapnic respiratory failure on BiPAP. I evaluated the patient in the ICU. He is somnolent but intermittently wakes up to command. Currently he is on 18/6 pressure setting on BiPAP. Patient is tachycardic and lethargic. He has history of myotonic muscular dystrophy with atrophied extremities. He is also a smoker. Repeat ABG on above settings shows no significant improvement. His pH remains at 7.28. Patient is at high risk of decompensation due to known muscular dystrophy. Proceed with endotracheal intubation SUBJ 05/12/18: Remains intubated sedated with propofol. On attempted sedation vacation patient became agitated. Start Precedex. Niko fever up to 101. Sputum culture already sent also send blood and urine culture. Continue Rocephin for now. 05/13: CXR with bilateral volume loss. Requiring FiO2 75% now. Hyperglycemia persists, Levemir dosing has been doubled. Continue Glucerna 1.5. 05/14: Patient still requiring 60% FiO2. The culprit would appear to be bibasilar atelectasis but the lower lobes were not particularly impressive for collapse on the CAT scan of the abdomen. Will try a recruitment maneuver today and see if we can achieve better oxygenation. The patient requires very large amounts of propofol the prevent agitation. I am reluctant to use benzodiazepines or narcotics in someone with a muscle weakness disorder so will try an atypical antipsychotic. 05/15: Although aeration is generally improved, the basilar segments on the chest x-ray remain atelectatic. We will continue with APRV ventilatory mode and push peak pressure to 30. Unfortunately his large abdomen and weak muscles inspires to produce basilar atelectasis. Underlying ventricular function does not appear normal and an echo will help us sort out his ventricular function and pulmonary artery pressures. He is prone to hypoventilation syndrome. If large oxygen gradients persists I will get a pulmonary angiogram but embolus is considerably down on the list of etiologies for hypoxia in this situation. 05/16: After 48 hours on APRV mode the patient is requiring 30% oxygen producing 100% saturation. Bibasilar atelectasis was clearly the cause of his hypoxemia. I will convert him back to conventional ventilation mimicking his present mean airway pressure and slowly wean PEEP from there. Continue tube feedings. Objective Vital Signs / I&O: Vital Signs 05/15/18 08:00 05/15/18 08:01 05/15/18 09:00 Temperature 98.4 F Pulse Rate 77 73 74 Respiratory Rate 11 L 10 L Blood Pressure 124/81 Pulse Oximetry 97 05/15/18 11:15 05/15/18 11:16 05/15/18 12:00 Temperature 97.6 F Pulse Rate 74 78 Respiratory Rate 23 14 11 L Blood Pressure 131/77 Pulse Oximetry 100 100 05/15/18 16:00 05/15/18 16:14 05/15/18 19:24 Temperature 98.1 F Pulse Rate 78 80 95 H Respiratory Rate 11 L 34 H 43 H Blood Pressure 102/67 Pulse Oximetry 100 100 100 05/15/18 20:00 05/15/18 23:33 05/16/18 00:00 Temperature 98.3 F 98.0 F Pulse Rate 87 83 Respiratory Rate 11 L 45 H 11 L Blood Pressure 106/71 114/80 Pulse Oximetry 100 100 05/16/18 03:57 05/16/18 04:00 Temperature 98.7 F Pulse Rate 89 Respiratory Rate 27 H 11 L Blood Pressure 112/73 Pulse Oximetry 100 100 Intake & Output 05/15/18 05/15/18 05/16/18 06:59 18:59 06:59 Intake Total 1705 / 1705 1623 / 1623 1850 / 1850 Output Total 450 / 450 425 / 425 450 / 450 Balance 1255 / 1255 1198 / 1198 1400 / 1400 Weight 81.2 kg 85.3 kg Intake: IV 1300 / 1300 1100 / 1100 1300 / 1300 LR 1000 mL Inj 1,000 ML @ 100 1000 / 1000 1000 / 1000 1000 / 1000 mls/hr IV.CONT .Q10H [facility] Rx#: [id number] Diprivan 1000 mg/100 ml Inj 1, 200 / 200 100 / 100 200 / 200 000 mg In 100 ml @ 5 MCG/KG/MIN 2.449 mls/hr IV.CONT TITRATE PRN Rx#:[id number] Rocephin Inj 1,000 MG In NS Inj 100 / 100 100 / 100 100 ML @ 200 mls/hr IV.SIG Q24H [facility] Rx#:[id number] Tube Feeding 405 / 405 523 / 523 550 / 550 Output: Urine 450 / 450 Urine Amount (Catheter) 425 / 425 450 / 450 Indwelling Urethral Catheter 425 / 425 450 / 450 Other: Date of Last Bowel Movement 05/15/18 05/15/18 05/15/18 Result Diagrams: 05/16/18 04:53 05/16/18 04:53 Objective Remarks: GENERAL: Well-nourished white male lying in bed, intubated sedated for vent synchrony. SKIN: Focused skin assessment warm/dry. HEAD: Atraumatic. Normocephalic. EYES: Pupils equal and round. No scleral icterus. No injection or drainage. ENT: No nasal bleeding or discharge. NECK: Trachea midline. Intubation oral. CARDIOVASCULAR: Normal S1-S2, regular rate and rhythm. No JVD. RESPIRATORY: APRV mode. Breath sounds equal bilaterally. Air entry bases remains diminished bilaterally GASTROINTESTINAL: Abdomen soft, moderately and chronically distended, no ecchymoses. No guarding. Bowel sounds active. MUSCULOSKELETAL: Limb muscles upper and lower extremities are atrophied. Well- perfused. NEUROLOGICAL: Sedated with propofol localizes to pain. No focal deficits moving all extremities spontaneously when light. Agitated easily when light. Assessment and Plan - Assessment and Plan Plan: ASSESSMENT: Acute hypercapnic respiratory failure Probable COPD with exacerbation Status post fall with large left-sided retroperitoneal hematoma Diabetes mellitus with hyperglycemia Known renal tumor Myotonic muscular dystrophy Tobacco abuse Obesity PLAN: NEURO: -Propofol for sedation -Start Precedex to facilitate ventilator weaning -PT/OT daily -Try to avoid narcotics and benzodiazepine sedatives -Start Zyprexa twice daily 05/14. -Restart Precedex for vent weaning. RESP: -Intubated and placed on mechanical ventilation 05/11/18 -PRVC/AC Ventilator bundle -DuoNeb every 4 hours scheduled and as needed -Sputum culture, IV Solu-Medrol 40 mg every 8 hours -Daily MIP, VC, SBT -Convert to APRV ventilatory mode. Increase pressure high. -Convert back to conventional ventilation, mimic present mean airway pressure, PEEP 18. CV: -Hold IV fluid. -Monitor blood pressure and heart rate close GI/HEME: -N.p.o., IV famotidine. Tube feeds with Glucerna -Monitor H&H closely and transfuse as needed. Hb 10.7 today -Retroperitoneal hematoma management per trauma service -signed off. -Hemoglobin remains sterile though minor decline consistent with hydration. : -Monitor renal function. Rowe catheter. -Known renal tumor needs outpatient follow-up ID: -F/u sputum culture. Send blood and urine culture -Empiric Rocephin for COPD exacerbation -As needed Tylenol for fever ENDO: -Electrolyte replacement per protocol -Sliding scale insulin. Increase Levemir to 20 units every 12 PROPH: -Bilateral lower extremity SCDs. famotidine, Lovenox subcu LINES: -Utilize peripheral IVs, central line if needed Patient remains critically ill from hypercapnic respiratory failure and trauma related retroperitoneal bleed. Continue to monitor hemoglobin and hemodynamics closely. Patient has myotonic muscular dystrophy which may be challenging to wean off the ventilator. Immediate goal is to recruit basal lung volume and wean from ventilator. Have converted to a recruitment maneuver with APRV -and oxygen diffusion gradient has improved considerably. Now work toward ventilator weaning.
[2018-05-16] MEDS: Chlorhexidine 0.12% Oral Kit 15 ML UDC OROPHARYNG SCH ×2 (07:46→20:43)
[2018-05-16] MEDS: Insulin Detemir Inj 1,000 UNIT/10 ML Vial SQ SCH ×2 (07:59→20:43)
[2018-05-16] MEDS: Senna/Docusate Sodium 8.6/50 MG Tablet PO SCH ×2 (08:00→20:43)
[2018-05-16] MEDS: Enoxaparin Inj 40 MG/0.4 ML Syringe SQ SCH (08:00)
[2018-05-17] MEDS: Insulin NovoLOG Aspart Correctional Sugar Inj SQ SCH ×4 (01:27→21:00)
[2018-05-17] MEDS: Oral Hygiene Kit OROPHARYNG SCH ×4 (01:28→16:13)
[2018-05-17] MEDS: Propofol 1000 mg/100 ml Inj 1,000 MG/100 ML BOTTLE IV.CONT PRN ×4 (02:00→23:15)
[2018-05-17 04:22] LABS: Eos # (Auto) 0.2 th/mm3 (0.0-0.4); Eos % (Auto) 1.7 % (0.0-4.0); Hematocrit 22.5 % (39.0-51.0); Hemoglobin 7.4 gm/dL (13.0-17.0); Lymph # (Auto) 1.7 th/mm3 (1.0-4.8); Mean Corpuscular Hemoglobin 27.8 pg (27.0-34.0); Mean Corpuscular Volume 84.3 fL (80.0-100.0); Mean Platelet Volume 10.8 fL (7.0-11.0); Mono # (Auto) 0.7 th/mm3 (0.0-0.9); Mono % (Auto) 7.1 % (0.0-8.0); Neut # (Auto) 7.6 th/mm3 (1.8-7.7); Neut % (Auto) 74.2 % (16.0-70.0); Platelet Count 231 th/mm3 (150-450); Red Blood Count 2.67 mil/mm3 (4.50-5.90); Red Cell Distribution Width 15.4 % (11.6-17.2); White Blood Count 10.2 th/mm3 (4.0-11.0)
[2018-05-17 04:37] LABS: ABG Base Excess 4.8 mmol/L (-2-2); ABG PCO2 44 mmHg (38-42); ABG PO2 94 mmHg (61-120)
[2018-05-17 04:47] LABS: Anion Gap 7 meq/L (5-15); Blood Urea Nitrogen 43 mg/dL (7-18); Calcium 8.2 mg/dL (8.5-10.1); Carbon Dioxide 29.2 meq/L (21.0-32.0); Chloride 113 meq/L (98-107); Glomerular Filtration Rate Greater Than 89 mL/min (>89); Glucose,Random 112 mg/dL (74-106); Potassium 4.2 meq/L (3.5-5.1); Sodium 149 meq/L (136-145)
[2018-05-17] MEDS: Pantoprazole Inj 40 MG Vial IV.PUSH SCH (06:30)
[2018-05-17] MEDS: Chlorhexidine 0.12% Oral Kit 15 ML UDC OROPHARYNG SCH ×2 (07:45→21:01)
[2018-05-17 08:10] LABS: Lymphocytes 15 % (9-44); Monocytes 3 % (0-8); Myelocytes 1 % (0-0); Platelet Estimate Normal (Normal); Promyelocyte 1 % (0-0); Tallied Nucleated RBC 1 (0-0); Toxic Vacuolation Present
[2018-05-17] MEDS: Insulin Detemir Inj 1,000 UNIT/10 ML Vial SQ SCH ×2 (08:49→21:00)
[2018-05-17] MEDS: Senna/Docusate Sodium 8.6/50 MG Tablet PO SCH ×2 (08:49→21:01)
[2018-05-17] MEDS: Enoxaparin Inj 40 MG/0.4 ML Syringe SQ SCH (08:49)
--- NOTE | 2018-05-17 09:45 | P.PNCC ---
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 As found to have a large left retroperitoneal mesenteric hematoma measuring about 10 x 6 cm, also had right renal tumor which apparently had been followed per Dr. Julio's notes. Patient's initial ABG showed pH of 7.28 PCO2 of 63 on room air and he was placed on a BiPAP. Repeat ABG after several hours on BiPAP setting 12/5 showed pH 7.28 PCO2 unchanged at 62. Critical care medicine was consulted for hypercapnic respiratory failure on BiPAP. I evaluated the patient in the ICU. He is somnolent but intermittently wakes up to command. Currently he is on 18/6 pressure setting on BiPAP. Patient is tachycardic and lethargic. He has history of myotonic muscular dystrophy with atrophied extremities. He is also a smoker. Repeat ABG on above settings shows no significant improvement. His pH remains at 7.28. Patient is at high risk of decompensation due to known muscular dystrophy. Proceed with endotracheal intubation SUBJ 05/12/18: Remains intubated sedated with propofol. On attempted sedation vacation patient became agitated. Start Precedex. Niko fever up to 101. Sputum culture already sent also send blood and urine culture. Continue Rocephin for now. 05/13: CXR with bilateral volume loss. Requiring FiO2 75% now. Hyperglycemia persists, Levemir dosing has been doubled. Continue Glucerna 1.5. 05/14: Patient still requiring 60% FiO2. The culprit would appear to be bibasilar atelectasis but the lower lobes were not particularly impressive for collapse on the CAT scan of the abdomen. Will try a recruitment maneuver today and see if we can achieve better oxygenation. The patient requires very large amounts of propofol the prevent agitation. I am reluctant to use benzodiazepines or narcotics in someone with a muscle weakness disorder so will try an atypical antipsychotic. 05/15: Although aeration is generally improved, the basilar segments on the chest x-ray remain atelectatic. We will continue with APRV ventilatory mode and push peak pressure to 30. Unfortunately his large abdomen and weak muscles inspires to produce basilar atelectasis. Underlying ventricular function does not appear normal and an echo will help us sort out his ventricular function and pulmonary artery pressures. He is prone to hypoventilation syndrome. If large oxygen gradients persists I will get a pulmonary angiogram but embolus is considerably down on the list of etiologies for hypoxia in this situation. 05/16: After 48 hours on APRV mode the patient is requiring 30% oxygen producing 100% saturation. Bibasilar atelectasis was clearly the cause of his hypoxemia. I will convert him back to conventional ventilation mimicking his present mean airway pressure and slowly wean PEEP from there. Continue tube feedings. 05/17: He is continuing adequate oxygenation as mean airway pressure is slowly decreased. At this juncture we can start spontaneous breathing trials again. General respiratory effort remains weak, associated with his muscular dystrophy Objective Vital Signs / I&O: Vital Signs 05/16/18 10:00 05/16/18 11:29 05/16/18 12:00 Temperature 97.8 F Pulse Rate 68 80 Respiratory Rate 20 16 Blood Pressure 106/62 Pulse Oximetry 98 99 05/16/18 14:00 05/16/18 15:00 05/16/18 16:00 Temperature 98.2 F Pulse Rate 65 65 Respiratory Rate 12 12 Blood Pressure 96/57 L Pulse Oximetry 98 100 05/16/18 18:00 05/16/18 19:47 05/16/18 20:00 Temperature 97.4 F L Pulse Rate 60 62 Respiratory Rate 12 12 Blood Pressure 106/68 Pulse Oximetry 100 100 05/16/18 22:00 05/17/18 00:00 05/17/18 01:25 Temperature 97.4 F L Pulse Rate 65 65 Respiratory Rate 12 12 Blood Pressure 92/54 L Pulse Oximetry 99 99 05/17/18 02:00 05/17/18 04:00 05/17/18 04:08 Temperature 97.6 F Pulse Rate 65 75 Respiratory Rate 12 12 Blood Pressure 99/59 L Pulse Oximetry 99 99 05/17/18 06:00 05/17/18 07:32 05/17/18 08:00 Temperature 97.9 F Pulse Rate 86 70 Respiratory Rate 12 12 Blood Pressure 91/58 L Pulse Oximetry 98 97 Intake & Output 05/16/18 05/17/18 05/17/18 18:59 06:59 18:59 Intake Total 1384 / 1384 1010 / 1010 Output Total 800 / 800 725 / 725 Balance 584 / 584 285 / 285 Weight 85 kg Intake: IV 725 / 725 300 / 300 LR 1000 mL Inj 1,000 ML @ 100 625 / 625 mls/hr IV.CONT .Q10H [facility] Rx#: [id number] Diprivan 1000 mg/100 ml Inj 1, 100 / 100 300 / 300 000 mg In 100 ml @ 5 MCG/KG/MIN 2.449 mls/hr IV.CONT TITRATE PRN Rx#:[id number] Tube Feeding 539 / 539 650 / 650 Tube Irrigant 120 / 120 60 / 60 Output: Urine 800 / 800 Urine Amount (Catheter) 725 / 725 Indwelling Urethral Catheter 725 / 725 Other: Date of Last Bowel Movement 05/15/18 05/15/18 05/15/18 # Bowel Movements 0 Result Diagrams: 05/17/18 03:05 05/17/18 03:05 Objective Remarks: GENERAL: Well-nourished white male lying in bed, intubated sedated for vent synchrony. SKIN: Focused skin assessment warm/dry. HEAD: Atraumatic. Normocephalic. EYES: Pupils equal and round. No scleral icterus. No injection or drainage. ENT: No nasal bleeding or discharge. NECK: Trachea midline. Intubation oral. CARDIOVASCULAR: Normal S1-S2, regular rate and rhythm. No JVD. RESPIRATORY: APRV mode. Breath sounds equal bilaterally. Air entry bases remains diminished bilaterally GASTROINTESTINAL: Abdomen soft, moderately and chronically distended, no ecchymoses. No guarding. Bowel sounds active. MUSCULOSKELETAL: Limb muscles upper and lower extremities are atrophied. Well- perfused. NEUROLOGICAL: Sedated with propofol localizes to pain. No focal deficits moving all extremities spontaneously when light. Agitated easily when light. Assessment and Plan - Assessment and Plan Plan: ASSESSMENT: Acute hypercapnic respiratory failure Probable COPD with exacerbation Status post fall with large left-sided retroperitoneal hematoma Diabetes mellitus with hyperglycemia Known renal tumor Myotonic muscular dystrophy Tobacco abuse Obesity PLAN: NEURO: -Propofol for sedation -Start Precedex to facilitate ventilator weaning -PT/OT daily -Try to avoid narcotics and benzodiazepine sedatives -Start Zyprexa twice daily 05/14. -Restart Precedex for vent weaning. RESP: -Intubated and placed on mechanical ventilation 05/11/18 -PRVC/AC Ventilator bundle -DuoNeb every 4 hours scheduled and as needed -Sputum culture, IV Solu-Medrol 40 mg every 8 hours -Daily MIP, VC, SBT -Convert to APRV ventilatory mode. Increase pressure high. -Convert back to conventional ventilation, mimic present mean airway pressure, PEEP 14. -Restart SBT's. CV: -Hold IV fluid. -Monitor blood pressure and heart rate close GI/HEME: -N.p.o., IV famotidine. Tube feeds with Glucerna -Monitor H&H closely and transfuse as needed. Hb 10.7 today -Retroperitoneal hematoma management per trauma service -signed off. -Hemoglobin remains sterile though minor decline consistent with hydration. : -Monitor renal function. Rowe catheter. -Known renal tumor needs outpatient follow-up ID: -F/u sputum culture. Send blood and urine culture -Empiric Rocephin for COPD exacerbation -As needed Tylenol for fever ENDO: -Electrolyte replacement per protocol -Sliding scale insulin. Increase Levemir to 20 units every 12 PROPH: -Bilateral lower extremity SCDs. famotidine, Lovenox subcu LINES: -Utilize peripheral IVs, central line if needed Overall impression: Patient remains critically ill from hypercapnic respiratory failure and trauma related retroperitoneal bleed. Continue to monitor hemoglobin and hemodynamics closely. Patient has myotonic muscular dystrophy which may be challenging to wean off the ventilator. Immediate goal is to recruit basal lung volume and wean from ventilator. He has required a recruitment maneuver with APRV -and oxygen diffusion gradient has improved considerably. Now working toward ventilator weaning. PEEP is down to 14.
[2018-05-17] MEDS: Hyoscyamine Inj 0.5 MG/ML Ampul IV.PUSH PRN (13:42)
--- NOTE | 2018-05-17 16:36 | ECHRPT ---
Indication: HEART FAILURE CONCLUSIONS The left ventricular systolic function is hyperdynamic with an estimated ejection fraction in the ra nge of 60- 65%. Trace mitral valve regurgitation. There is mild tricuspid valve regurgitation. BP: / HR: Rhythm: Sinus MEASUREMENTS (Male / Female) Normal Values Technical Quality:Fair 2D ECHO LV Diastolic Diameter PLAX 4.8 cm 4.2 - 5.9 / 3.9 - 5.3 cm LV Systolic Diameter PLAX 3.0 cm IVS Diastolic Thickness 0.8 cm 0.6 - 1.0 / 0.6 - 0.9 cm LVPW Diastolic Thickness 0.8 cm 0.6 - 1.0 / 0.6 - 0.9 cm LV Relative Wall Thickness 0.3 RV Internal Dim ED PLAX 2.5 cm LVOT Diameter 2.0 cm Aortic Root Diameter 2.9 cm LA Systolic Diameter LX 3.4 cm 3.0 - 4.0 / 2.7 - 3.8 cm M-MODE AV Cusp Separation MM 2.2 cm DOPPLER AV Peak Velocity 116.0 cm/s AV Peak Gradient 5.4 mmHg AV Mean Gradient 3.0 mmHg AV Velocity Time Integral 18.6 cm LVOT Peak Velocity 105.0 cm/s LVOT Peak Gradient 4.4 mmHg LVOT Velocity Time Integral 16.7 cm AV Area Cont Eq vti 2.8 cm AV Area Cont Eq pk 2.8 cm Mitral E Point Velocity 72.1 cm/s Mitral A Point Velocity 59.2 cm/s Mitral E to A Ratio 1.2 LV E' Lateral Velocity 9.4 cm/s Mitral E to LV E' Lateral Ratio 7.7 LV E' Septal Velocity 9.0 cm/s Mitral E to LV E' Septal Ratio 8.0 TR Peak Velocity 239.5 cm/s TR Peak Gradient 22.9 mmHg Right Atrial Pressure 10.0 mmHg Pulmonary Artery Systolic Pressu 32.9 mmHg Right Ventricular Systolic Press 32.9 mmHg PV Peak Velocity 54.1 cm/s PV Peak Gradient 1.2 mmHg FINDINGS LEFT VENTRICLE Normal left ventricular size. The left ventricular systolic function is hyperdynamic with an estimated ejection fraction in the ra nge of 60- 65% Wall thickness is normal. No regional wall motion abnormalities are present. RIGHT VENTRICLE Normal right ventricular size and systolic function. LEFT ATRIUM The left atrial size is normal. RIGHT ATRIUM The right atrial size is normal. ATRIAL SEPTUM The interatrial septum not well visualized. AORTA The aortic root and proximal ascending aorta are normal in size on limited imaging. MITRAL VALVE Structurally normal mitral valve. Trace mitral valve regurgitation. No mitral valve stenosis. AORTIC VALVE Trileaflet aortic valve. No aortic valve stenosis or regurgitation. TRICUSPID VALVE Structurally normal tricuspid valve. There is mild tricuspid valve regurgitation. The estimated pulmonary arterial pressure is 32.9 mmHg. PULMONARY VALVE No pulmonary valve regurgitation or stenosis. VESSELS The inferior vena cava was not well visualized. PERICARDIUM A prominent epicardial fat pad is present. Alireza Jerome DO (Electronically Signed) Final Date:17 May 2018 16:35
[2018-05-18] MEDS: Hyoscyamine Inj 0.5 MG/ML Ampul IV.PUSH PRN (00:01)
[2018-05-18] MEDS: Oral Hygiene Kit OROPHARYNG SCH ×3 (00:50→11:53)
[2018-05-18] MEDS: Insulin NovoLOG Aspart Correctional Sugar Inj SQ SCH ×3 (00:50→11:54)
[2018-05-18] MEDS: Propofol 1000 mg/100 ml Inj 1,000 MG/100 ML BOTTLE IV.CONT PRN ×3 (04:35→13:08)
[2018-05-18] MEDS: Pantoprazole Inj 40 MG Vial IV.PUSH SCH (05:02)
[2018-05-18 05:44] LABS: Baso % (Auto) 0.3 % (0.0-2.0); Eos # (Auto) 0.3 th/mm3 (0.0-0.4); Eos % (Auto) 2.4 % (0.0-4.0); Hematocrit 26.4 % (39.0-51.0); Hemoglobin 8.5 gm/dL (13.0-17.0); Lymph % (Auto) 16.2 % (9.0-44.0); Mean Corpuscular Hemoglobin 27.1 pg (27.0-34.0); Mean Corpuscular Volume 84.6 fL (80.0-100.0); Mean Platelet Volume 11.3 fL (7.0-11.0); Mono # (Auto) 0.9 th/mm3 (0.0-0.9); Neut # (Auto) 9.2 th/mm3 (1.8-7.7); Neut % (Auto) 74.1 % (16.0-70.0); Platelet Count 285 th/mm3 (150-450); Red Blood Count 3.12 mil/mm3 (4.50-5.90); Red Cell Distribution Width 15.9 % (11.6-17.2); White Blood Count 12.5 th/mm3 (4.0-11.0)
[2018-05-18 05:49] LABS: Anion Gap 6 meq/L (5-15); Blood Urea Nitrogen 43 mg/dL (7-18); Carbon Dioxide 31.3 meq/L (21.0-32.0); Chloride 112 meq/L (98-107); Glomerular Filtration Rate Greater Than 89 mL/min (>89); Glucose,Random 76 mg/dL (74-106); Potassium 4.7 meq/L (3.5-5.1)
[2018-05-18 05:50] LABS: Sodium 149 meq/L (136-145)
[2018-05-18] MEDS: Enoxaparin Inj 40 MG/0.4 ML Syringe SQ SCH (08:35)
[2018-05-18] MEDS: Senna/Docusate Sodium 8.6/50 MG Tablet PO SCH (08:35)
[2018-05-18] MEDS: Insulin Detemir Inj 1,000 UNIT/10 ML Vial SQ SCH (08:35)
[2018-05-18] MEDS: Chlorhexidine 0.12% Oral Kit 15 ML UDC OROPHARYNG SCH (08:35)
--- NOTE | 2018-05-18 11:45 | P.DS ---
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 As found to have a large left retroperitoneal mesenteric hematoma measuring about 10 x 6 cm, also had right renal tumor which apparently had been followed per Dr. Julio's notes. Patient's initial ABG showed pH of 7.28 PCO2 of 63 on room air and he was placed on a BiPAP. Repeat ABG after several hours on BiPAP setting 12/5 showed pH 7.28 PCO2 unchanged at 62. Critical care medicine was consulted for hypercapnic respiratory failure on BiPAP. I evaluated the patient in the ICU. He is somnolent but intermittently wakes up to command. Currently he is on 18/6 pressure setting on BiPAP. Patient is tachycardic and lethargic. He has history of myotonic muscular dystrophy with atrophied extremities. He is also a smoker. Repeat ABG on above settings shows no significant improvement. His pH remains at 7.28. Patient is at high risk of decompensation due to known muscular dystrophy. Proceeded with endotracheal intubation and mechanical ventilation. 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 As found to have a large left retroperitoneal mesenteric hematoma measuring about 10 x 6 cm, also had right renal tumor which apparently had been followed per Dr. Julio's notes. Patient's initial ABG showed pH of 7.28 PCO2 of 63 on room air and he was placed on a BiPAP. Repeat ABG after several hours on BiPAP setting 12/5 showed pH 7.28 PCO2 unchanged at 62. Critical care medicine was consulted for hypercapnic respiratory failure on BiPAP. I evaluated the patient in the ICU. He is somnolent but intermittently wakes up to command. Currently he is on 18/6 pressure setting on BiPAP. Patient is tachycardic and lethargic. He has history of myotonic muscular dystrophy with atrophied extremities. He is also a smoker. Repeat ABG on above settings shows no significant improvement. His pH remains at 7.28. Patient is at high risk of decompensation due to known muscular dystrophy. Proceed with endotracheal intubation SUBJ 05/12/18: Remains intubated sedated with propofol. On attempted sedation vacation patient became agitated. Start Precedex. Niko fever up to 101. Sputum culture already sent also send blood and urine culture. Continue Rocephin for now. 05/13: CXR with bilateral volume loss. Requiring FiO2 75% now. Hyperglycemia persists, Levemir dosing has been doubled. Continue Glucerna 1.5. 05/14: Patient still requiring 60% FiO2. The culprit would appear to be bibasilar atelectasis but the lower lobes were not particularly impressive for collapse on the CAT scan of the abdomen. Will try a recruitment maneuver today and see if we can achieve better oxygenation. The patient requires very large amounts of propofol the prevent agitation. I am reluctant to use benzodiazepines or narcotics in someone with a muscle weakness disorder so will try an atypical antipsychotic. 05/15: Although aeration is generally improved, the basilar segments on the chest x-ray remain atelectatic. We will continue with APRV ventilatory mode and push peak pressure to 30. Unfortunately his large abdomen and weak muscles inspires to produce basilar atelectasis. Underlying ventricular function does not appear normal and an echo will help us sort out his ventricular function and pulmonary artery pressures. He is prone to hypoventilation syndrome. If large oxygen gradients persists I will get a pulmonary angiogram but embolus is considerably down on the list of etiologies for hypoxia in this situation. 05/16: After 48 hours on APRV mode the patient is requiring 30% oxygen producing 100% saturation. Bibasilar atelectasis was clearly the cause of his hypoxemia. I will convert him back to conventional ventilation mimicking his present mean airway pressure and slowly wean PEEP from there. Continue tube feedings. 05/17: He is continuing adequate oxygenation as mean airway pressure is slowly decreased. At this juncture we can start spontaneous breathing trials again. General respiratory effort remains weak, associated with his muscular dystrophy 05/18: Failed SBT today due to tachypnea and limited TVs. - Time Spent with Patient Total time spent providing and/or coordinating discharge services: Greater than 30 minutes - Quality: VTE Deep Vein Thrombosis/Pulmonary Embolism Present on Admission: No Exam Vital signs: Vital Signs 05/17/18 12:00 05/17/18 14:00 05/17/18 15:09 Temperature 98 F Pulse Rate 95 H 86 Respiratory Rate 21 15 Blood Pressure 134/86 Pulse Oximetry 99 95 05/17/18 16:00 05/17/18 18:00 05/17/18 19:55 Temperature 98.7 F Pulse Rate 96 H 92 H Respiratory Rate 19 17 Blood Pressure 116/76 Pulse Oximetry 92 L 96 05/17/18 20:00 05/17/18 22:00 05/18/18 00:00 Temperature 99.7 F H 99.3 F Pulse Rate 85 94 H 106 H Respiratory Rate 18 26 H Blood Pressure 102/63 131/82 Pulse Oximetry 95 91 L 05/18/18 00:21 05/18/18 02:00 05/18/18 03:42 Temperature Pulse Rate 90 Respiratory Rate 17 13 Blood Pressure Pulse Oximetry 98 05/18/18 04:00 05/18/18 06:00 05/18/18 07:23 Temperature 100 F H Pulse Rate 84 99 H Respiratory Rate 12 13 Blood Pressure 108/64 Pulse Oximetry 97 98 05/18/18 08:00 05/18/18 10:00 Temperature 99.3 F Pulse Rate 84 84 Respiratory Rate 14 Blood Pressure 104/64 Pulse Oximetry 97 Intake & Output 05/17/18 05/18/18 05/18/18 18:59 06:59 18:59 Intake Total 691 / 691 814 / 814 100 / 100 Output Total 600 / 600 525 / 525 Balance 91 / 91 289 / 289 100 / 100 Weight 83.6 kg Intake: IV 100 / 100 200 / 200 100 / 100 Diprivan 1000 mg/100 ml Inj 1, 100 / 100 200 / 200 100 / 100 000 mg In 100 ml @ 5 MCG/KG/MIN 2.449 mls/hr IV.CONT TITRATE PRN Rx#:[id number] Tube Feeding 561 / 561 554 / 554 Tube Irrigant 30 / 30 60 / 60 Output: Urine 525 / 525 Urine Amount (Catheter) 600 / 600 Indwelling Urethral Catheter 600 / 600 Other: # Voids 3 6 Date of Last Bowel Movement 05/15/18 05/15/18 05/15/18 Narrative: Objective Remarks: GENERAL: Well-nourished white male lying in bed, intubated sedated for vent synchrony. SKIN: Focused skin assessment warm/dry. HEAD: Atraumatic. Normocephalic. EYES: Pupils equal and round. No scleral icterus. No injection or drainage. ENT: No nasal bleeding or discharge. NECK: Trachea midline. Intubation oral. CARDIOVASCULAR: Normal S1-S2, regular rate and rhythm. No JVD. RESPIRATORY: APRV mode. Breath sounds equal bilaterally. Air entry bases remains diminished bilaterally GASTROINTESTINAL: Abdomen soft, moderately and chronically distended, no ecchymoses. No guarding. Bowel sounds active. MUSCULOSKELETAL: Limb muscles upper and lower extremities are atrophied. Well- perfused. NEUROLOGICAL: Sedated with propofol localizes to pain. No focal deficits moving all extremities spontaneously when light. Agitated easily when light. Results Procedures completed during hospitalization: Intubation and mechanical ventilation Labs on day of discharge: Labs from last 24 hours 05/18/18 05/18/18 05/18/18 11:28 08:13 05:11 WBC RBC Hgb Hct MCV MCH MCHC RDW Plt Count MPV Neut % (Auto) Lymph % (Auto) [place] % (Auto) Eos % (Auto) Baso % (Auto) Neut # (Auto) Lymph # (Auto) [place] # (Auto) Eos # (Auto) Baso # (Auto) WBC Differential Differential Comment Sodium Potassium Chloride Carbon Dioxide Anion Gap BUN Creatinine Estimated GFR POC Glucose 109 112 H 120 H Random Glucose Calcium 05/18/18 05/18/18 05/18/18 03:57 03:57 00:16 WBC 12.5 H RBC 3.12 L Hgb 8.5 L Hct 26.4 L MCV 84.6 MCH 27.1 MCHC 32.0 RDW 15.9 Plt Count 285 MPV 11.3 H Neut % (Auto) 74.1 H Lymph % (Auto) 16.2 [place] % (Auto) 7.0 Eos % (Auto) 2.4 Baso % (Auto) 0.3 Neut # (Auto) 9.2 H Lymph # (Auto) 2.0 [place] # (Auto) 0.9 Eos # (Auto) 0.3 Baso # (Auto) 0.0 WBC Differential . Differential Comment Auto diff final Sodium 149 H Potassium 4.7 Chloride 112 H Carbon Dioxide 31.3 Anion Gap 6 BUN 43 H Creatinine 0.79 Estimated GFR Greater than 89 POC Glucose 75 Random Glucose 76 Calcium 8.0 L 05/17/18 05/17/18 05/17/18 20:45 18:20 17:14 WBC RBC Hgb Hct MCV MCH MCHC RDW Plt Count MPV Neut % (Auto) Lymph % (Auto) [place] % (Auto) Eos % (Auto) Baso % (Auto) Neut # (Auto) Lymph # (Auto) [place] # (Auto) Eos # (Auto) Baso # (Auto) WBC Differential Differential Comment Sodium Potassium Chloride Carbon Dioxide Anion Gap BUN Creatinine Estimated GFR POC Glucose 91 85 66 L Random Glucose Calcium 05/17/18 12:27 WBC RBC Hgb Hct MCV MCH MCHC RDW Plt Count MPV Neut % (Auto) Lymph % (Auto) [place] % (Auto) Eos % (Auto) Baso % (Auto) Neut # (Auto) Lymph # (Auto) [place] # (Auto) Eos # (Auto) Baso # (Auto) WBC Differential Differential Comment Sodium Potassium Chloride Carbon Dioxide Anion Gap BUN Creatinine Estimated GFR POC Glucose 88 Random Glucose Calcium - Impressions ITS Impressions Abdomen/Pelvis CT 05/11/18 11:14 CONCLUSION: 1. Enlarging exophytic lesion arising from the inferior pole of the left kidney likely due to interval lesional hemorrhage with adjacent large retroperitoneal hematoma measuring 10.3 x 6.9 cm. Recommend further characterization of this lesion once patient's hemorrhage resolves with MRI renal mass protocol to exclude underlying mass that bled following trauma. 2. 1.0 cm soft tissue density mass arising from the posterior mid right kidney. There are also additional indeterminate density lesions primarily in the right kidney. These lesions can also be further characterized with MRI renal mass protocol exam. 3. 1.9 cm soft tissue density mass adjacent to the right renal midpole. This appears to be separate from the right kidney. Etiology is uncertain. Differential considerations include splenosis. If this cannot be definitively characterized at the time of MRI renal mass examination, consider sulfur colloid or heat damaged red cell nuclear medicine scan to exclude splenic tissue. 4. Additional ancillary findings, as above. Head CT 05/11/18 13:53 CONCLUSION: No acute intracranial injury. . Chest X-Ray 05/15/18 04:00 CONCLUSION: Bibasilar suspected areas of mild consolidation or atelectasis. Discharge Plan - Discharge Disposition Patient Disposition: Disch To Another Hospital - Discharge Condition Condition: Fair - Discharge Order Discharge Orders: Discharge Order (Routine); Ordered 05/18/18 Ordered By: Taran Lee - Discharge Details Anticipated Discharge Date: 05/18/18 - Physicians Team Primary Care Provider: UNKNOWN, Attending Provider: Eduardo Massey Other Providers: Eduardo Massey MD ; [facility]
== END 2018-05-18 13:15 ==
LOC: NEPE 11:07 → NEDA 13:53 → N03 15:57
PROVIDERS: ADMIT Internal Medicine; ATTEND Internal Medicine